=== PATIENT | female | born 1950 | race Caucasian/White ===

== ENCOUNTER 2018-09-28 09:02 | Day surgery (SDC) | payer MEDICARE ==
[2018-09-25 09:51] VITALS: BMI 42.9
--- NOTE | 2018-09-28 14:19 | OP ---
DATE OF PROCEDURE: 09/28/2018 PREOPERATIVE DIAGNOSES: 1. History of colon polyps. 2. Chronic diarrhea. DESCRIPTION OF PROCEDURE: After informed consent was obtained, the patient was placed in the left lateral decubitus position. Anesthesia was administered per the Anesthesia Department. Forward-viewing endoscope was inserted into the rectum after perianal inspection and rectal exam were normal and passed to the cecum with ease. The cecum, terminal ileum, ileocecal valve, and appendiceal orifice were normal. The prep was excellent. In the ascending colon, a 1 cm polyp was seen and removed with snare electrocautery, a smaller 4 mm polyp was seen and removed with snare electrocautery. Random biopsies were taken from the colon. The left colon displayed diverticulosis coli. Retroflexion of the rectum was normal except for some small internal hemorrhoids. ASSESSMENT: 1. Two ascending colon polyps - status post polypectomy. 2. Left-sided diverticulosis coli. 3. Small internal hemorrhoids. 4. Otherwise, normal ileocolonoscopy. RECOMMENDATIONS: Await histopathology. Job ID: [id number]
[2018-09-28] MEDS ORDERED: Lidocaine 1% PF 5 ML VIAL ONE (17:03)
[2018-09-28] MEDS ORDERED: PROPOFOL 200 MG/20 ML VIAL ONE (17:03)
== END 2018-09-28 12:30 | disposition home or self-care (01) ==
LOC: SDC 09:02
PROVIDERS: ATTEND Internal Medicine Gastroenterology
PROC: 0DBK8ZZ Excision of Ascending Colon, Via Natural or Artificial Opening Endoscopic (ICD-10-PCS; principal; 2018-09-28)
PROC: 0DBE8ZZ Excision of Large Intestine, Via Natural or Artificial Opening Endoscopic (ICD-10-PCS; 2018-09-28)
DX: Z12.11 Encounter for screening for malignant neoplasm of colon (principal); D12.2 Benign neoplasm of ascending colon; K57.30 Diverticulosis of large intestine without perforation or abscess without bleeding; K52.9 Noninfective gastroenteritis and colitis, unspecified; K64.8 Other hemorrhoids; Z85.42 Personal history of malignant neoplasm of other parts of uterus; Z86.010 Personal history of colon polyps; Z79.899 Other long term (current) drug therapy
CPT/HCPCS: 88305; J2001; J2704

== ENCOUNTER 2019-02-11 08:11 | Inpatient (IN) | payer MEDICARE ==
[2019-02-11 08:43] LABS: #Basophils 0.1 thou/uL (0.0-0.2); #Eosinphils 0.1 thou/uL (0.0-0.7); #Lymphocytes 2.2 thou/uL (1.20-3.40); #Monocytes 0.8 thou/uL (0.11-0.59); %Basophils 0.4 % (0.0-1.0); %Eosinophils 0.8 % (0.0-10.0); %Lymphocytes 12.5 % (21.0-51.0); %Monocytes 4.6 % (0.0-10.0); %Neutrophils 81.6 % (42.0-75.0); Hemoglobin 13.7 g/dL (12.0-16.0); Mean Corpuscular HGB CONC 33.8 g/dL (32.0-36.0); Mean Corpuscular Hemoglobin 30.5 pg (27.0-31.0); Mean Corpuscular Volume 90.2 fL (78.0-98.0); Platelet Count 335 thou/uL (130-400); RBC Distribution Width 12.2 % (11.5-14.5); Red Blood Cell (RBC) Count 4.49 mill/uL (4.20-5.40); White Blood Cell (WBC) Count 17.1 thou/uL (4.8-10.8)
--- NOTE | 2019-02-11 08:43 | CT ---
EXAM: CT brain without contrast HISTORY: Altered mental status COMPARISON: None TECHNIQUE: Multiple contiguous axial images were obtained and a CT of the brain without contrast. FINDINGS: There are scattered hypodensities in the subcortical and periventricular white matter consi stent with small vessel ischemic disease. There is no evidence of hydrocephalus, intracranial hemorrhage, or extra-axial fluid collection. The calvarium and overlying soft tissues are unremarkable. The visualized paranasal sinuses and masto id air cells are well aerated. IMPRESSION: No evidence of acute intracranial abnormality Dr. Smith notified of findings at 8:39 AM on 02/11/2019
[2019-02-11 09:02] LABS: Base Excess-Venous 3.5 mmol/L (-2.0 to 3.0); Bicarbonate (HCO3v) 28.8 mmol/L (22.0-28.0); CO2 Tension (PvCO2) 44.7 mmHg (40.0-50.0); Calcium, Ionized 0.96 mmol/L (See Comments:); Chloride 99 mmol/L (98-107); Hemoglobin - Calc 14.7 g/dL (12.0-16.0); Potassium 3.4 mmol/L (3.5-5.1); Sodium 135 mmol/L (138-145); T. Carbon Dioxide 30.1 mmol/L (22.0-28.0); vO2 Saturation-calc 54.4 % (60.0-85.0)
[2019-02-11 09:06] LABS: ALT (SGPT) 11 U/L (8-55); AST (SGOT) 18 U/L (5-34); Albumin 4.3 g/dL (3.4-4.8); Alkaline Phosphatase 101 U/L (40-150); Anion Gap 19 mmol/L (10-20); BUN (Urea Nitrogen) 15 mg/dL (9.8-20.1); Bilirubin, Total 0.6 mg/dL (0.2-1.2); CK (CPK) 380 U/L (29-168); Calc. Creatinine Clearance 0 mL/min (70-130); Calcium 9.4 mg/dL (7.8-10.44); Carbon Dioxide 24 mmol/L (23-31); Chloride 97 mmol/L (98-107); Estimated GFR-MDRD 49; Globulin 2.8 g/dL (2.4-3.5); Glucose 225 mg/dL (80-115); Potassium 3.5 mmol/L (3.5-5.1); Protein, Total 7.1 g/dL (6.0-8.3); Sodium 136 mmol/L (136-145)
--- NOTE | 2019-02-11 09:53 | CT ---
CT ANGIOGRAM OF BRAIN WITH AND WITHOUT CONTRAST CT ANGIOGRAM OF NECK WITH CONTRAST CT PERFUSION OF BRAIN WITH CONTRAST: DATE: 02/11/2019 HISTORY: 68-year-old female with acute stroke. Dr. Landers discussed the findings by telephone with ER physician Dr. Jamie Smith at 9:33 AM on 02/11/2019 COMPARISON: No prior brain CTs, MRIs, or CTAs. TECHNIQUE: Noncontrast brain CT performed. Iodinated IV contrast injected. Bolus chasing technique scan from aortic arch performed through vertex of the head. Coronal and sagittal 3-D MIP reconstructions. Postcontrast injection multiple axial scans perfusion study, excluding upper and lower portions of br ain. Unfortunately, the patient moved before the perfusion scan, and the level superior to the level of th e mid bodies of the lateral ventricles were excluded from the scan. FINDINGS: There is a filling defect throughout the entire the M1 segment of the left middle cerebral artery, pr obably acute. There is contrast opacification of at least some of the proximal and distal branches of the left MCA. There is a large region of decreased blood volume with matching deficits on the cere bral blood flow and mean transit time, consistent with large infarction in the left MCA territory. No definite noninfarcted penumbra of potentially salvageable ischemic brain parenchyma is visualized around the infarction. It is possible that there could be such a penumbra superior to the upper most images (patient moved and the upper portion of the cerebrum was not included). However, the visi ble region of infarction involves at least 25-30% of the visualized left MCA territory. There is heavily calcified large atheromatous plaque at the bilateral proximal internal carotid arter ies causing severe, approximately 75-80% stenosis at the origin of the right internal carotid, and very severe, approximately 90-99% stenosis at the origin of left internal carotid. Distal to this heather nosis, the rest of the left internal carotid artery is diffusely small in caliber. There is prominent calcified plaque in the bilateral carotid siphons. Medialized, retropharyngeal courses of the bilateral common carotid arteries.. IMPRESSION: 1) large acute infarction in left middle cerebral artery territory. 2) large thrombus filling the entire M1 segment of the left middle cerebral artery 3) atheromatous plaque causing critical stenosis at origin of left internal carotid artery. 4) atheromatous plaque causing severe stenosis at origin of right internal carotid artery.
[2019-02-11] MEDS ORDERED: Labetalol HCl 100 MG/20 ML VIAL ONE (10:32)
[2019-02-11] MEDS ORDERED: ISOVUE-370 76%-LOCM 1 ML ONE (10:48)
[2019-02-11 10:49] LABS: Bilirubin Negative (Negative); Blood, Urine Trace (Negative); Glucose, Urine (Dipstick) Negative (Negative); Leukocyte Negative (Negative); Nitrite Negative (Negative); Protein, Urine (Dipstick) Negative (Neg-Trace); Urobilinogen 0.2 mg/dL (0.2-1.0)
[2019-02-11] MEDS ORDERED: Aspirin Chewable 81 MG TAB ONE (10:49)
[2019-02-11 10:50] LABS: Clarity Clear (Clear)
[2019-02-11 11:01] LABS: Bacteria/HPF None Seen HPF (None Seen); Hyaline Casts/LPF NONE SEEN LPF (0-3 Hyaline); RBC/HPF 0-3 HPF (0-3); Squamous Epithelial 0-3 HPF (0-3)
[2019-02-11] MEDS ORDERED: cloNIDine 0.1 MG TAB PO PRN (15:01)
[2019-02-11] MEDS ORDERED: HumaLOG 300 UNITS/3 ML VIAL SC PRN (15:01)
[2019-02-11] MEDS ORDERED: Dextrose 5% in Water 1,000 ML IV PRN (15:48)
[2019-02-11] MEDS ORDERED: Dextrose 50% Abboject 50 ML SYRINGE IVP PRN (15:48)
--- NOTE | 2019-02-11 16:49 | HP ---
CHIEF COMPLAINT: Mental status change, status post fall. 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 The patient was recently seen in my office for followup wellness exam. She had been improving after 2 years of cancer treatment with Dr. Barajas at [facility]. Her blood pressure had been relatively well controlled. Her anxiety had been well controlled. Her diabetes was not well controlled. Her medications were adjusted and she went home in good condition following her followup visit as an outpatient. Per history from the neighbor yesterday, she was not responding to phone calls. He went to visit her and she was apparently on the ground. The patient states that she was on her bed. The neighbor stayed over the house to keep an eye on her and she continued to have difficulty moving, had difficulty with word finding issues. They called 911 and they brought her to the emergency department for further evaluation. In the Emergency Department, she was seen, evaluated, and found to have altered mental state with difficulty with memory, difficulty with speaking, some difficulty with ambulating. Her CT of the brain was normal, but she had a CT angiogram, which revealed an acute infarction of the left middle cerebral artery as well as large thrombus of the left middle cerebral artery and plaque in the right and left internal carotid artery. Neurology was consulted in the emergency department. Neurosurgery was consulted. Dr. España was informed of the case. He reviewed her and felt like there was no surgical intervention necessary at this time, but to be admitted for medical management. Upon evaluation and history taking, the patient does have word- finding difficulties. She has a hard time recalling what happened and her dysarthria keeps her from passing on the history. She does have some right-sided weakness and right-sided visual neglect as well. PAST MEDICAL HISTORY: Includes; 1. Low-grade serous carcinoma, status post surgical resection at [facility], status post chemotherapy. 2. Type 2 diabetes. 3. Hypertension. 4. Hyperlipidemia. 5. Gastroesophageal reflux disease. 6. Hypothyroidism. 7. Anxiety and depression. 8. Chronic diarrhea. PAST SURGICAL HISTORY: Includes EGD in 2012, colonoscopy in 2012, omental resection and ovarian resection in 2017, and skin cancer removal. MEDICATIONS: Include; 1. Venlafaxine 150 mg daily. 2. Trazodone 100 mg at bedtime. 3. Synthroid 50 mcg daily. 4. Diovan 320 mg daily. 5. Cholestyramine 4 g p.r.n. 6. Lipitor 20 mg daily. 7. Xanax XR 0.4 mg p.r.n. 8. Onglyza 5 mg daily. 9. Lomotil p.r.n. 10. Allopurinol 100 mg daily. 11. Omeprazole 40 mg daily. ALLERGIES: NONE KNOWN. IMMUNIZATIONS: Last Prevnar on February 03, 2019. Pneumovax on June 07, 2013. Tdap on February 02, 2018. Flu shot is up today. FAMILY HISTORY: Father unknown. Mother, with thyroid disease, thyroid cancer. Siblings with hypertension. SOCIAL HISTORY: She lives alone with neighbors nearby. No smoking. No alcohol. No drug use. She states that she has no family nearby. REVIEW OF SYSTEMS: As per the history of present illness. GENERAL: No recent illness or fevers. HEENT: Denies headache. CARDIAC: Denies chest pain or shortness of breath. PULMONARY: Denies cough. GASTROINTESTINAL: Denies nausea or vomiting. GENITOURINARY: No recent history of urinary tract infection. NEUROLOGIC: As per the history of present illness. PHYSICAL EXAMINATION: VITAL SIGNS: Temperature 98.9, pulse of 93, respirations 23, and blood pressure 157/129 on admission to the emergency department. GENERAL: She is awake and alert. No acute distress. She appears comfortable on the stretcher. HEENT: She does have dysarthria with word-finding difficulties. She has right-sided visual neglect. Pupils are equal. Mucosa is moist. NECK: Supple. No bruits. HEART: Regular rate and rhythm. LUNGS: Clear. ABDOMEN: Morbidly obese. Nontender, nondistended. No hepatosplenomegaly. EXTREMITIES: Trace edema. She does have slight weakness in upper and lower extremities on the right side with decreased cma or lpn strength. LABORATORY DATA: White blood cell count elevated at 17.1, hemoglobin and hematocrit 13.7 and 40.5, and platelets of 335. ABG stable. Sodium 136, potassium 3.5, chloride 97, CO2 of 24, BUN and creatinine are 15 and 1.11 with a GFR of 49, serum glucose of 225, and calcium 9.4. AST and ALT are normal, alkaline phosphatase 101. CPK of 380, troponin I less than 0.01. IMAGING DATA: Again, CT of the brain showed no acute disease. CT angiogram of the head and neck revealed a large acute infarction of the left middle cerebral artery, large thrombus in the left middle cerebral artery. Plaque causing critical stenosis on the left internal carotid artery and severe stenosis in the right internal carotid artery. ASSESSMENT: This is a 68-year-old female patient with a history of omental carcinoma, type 2 diabetes, hypertension, hyperlipidemia, now with acute left middle cerebral artery infarction. PLAN: 1. Admit to Neuro Team. Consult Neurology for evaluation. We will initiate PT , OT, and speech therapy. Will start aspirin therapy and await neuro eval to see if she is a candidate for more advanced anticoagulation. There is no sign of hemorrhage. 2. Type 2 diabetes. We will convert her to basal insulin and insulin sliding scale and monitor closely. 3. Hypertension. I will continue her ARB. We will start hydralazine as well and clonidine p.r.n. 4. History of low-grade serous carcinoma. Follow up with Dr. Barajas as an outpatient. 5. Hyperlipidemia. We will continue statin therapy. 6. Anxiety and depression. We will continue her Effexor. 7. Disposition. We will plan for inpatient rehab and attempt to contact family as well. Job ID: [id number] [facility]
[2019-02-11 16:55] VITALS: BMI 44.5
[2019-02-11] MEDS: Allopurinol 300 MG TAB PO SCH (21:14)
[2019-02-11] MEDS: hydrALAZINE 25 MG TAB PO SCH (21:14)
[2019-02-11] MEDS: Venlafaxine HCl XR 150 MG CAP PO SCH (21:14)
[2019-02-11] MEDS: Letrozole 2.5 MG TAB PO SCH (21:14)
[2019-02-11] MEDS: Atorvastatin Calcium 20 MG TAB PO SCH (21:15)
[2019-02-12 05:08] LABS: #Basophils 0.1 thou/uL (0.0-0.2); #Eosinphils 0.2 thou/uL (0.0-0.7); #Lymphocytes 2.9 thou/uL (1.20-3.40); #Monocytes 0.8 thou/uL (0.11-0.59); #Neutrophils 8.9 thou/uL (1.40-6.50); %Basophils 0.5 % (0.0-1.0); %Eosinophils 1.7 % (0.0-10.0); %Lymphocytes 22.4 % (21.0-51.0); %Monocytes 6.1 % (0.0-10.0); %Neutrophils 69.3 % (42.0-75.0); Hemoglobin 12.3 g/dL (12.0-16.0); Mean Corpuscular HGB CONC 33.9 g/dL (32.0-36.0); Mean Corpuscular Hemoglobin 30.4 pg (27.0-31.0); Mean Corpuscular Volume 89.7 fL (78.0-98.0); Mean Platelet Volume 7.7 fL (7.4-10.4); Platelet Count 289 thou/uL (130-400); RBC Distribution Width 12.2 % (11.5-14.5); Red Blood Cell (RBC) Count 4.05 mill/uL (4.20-5.40); White Blood Cell (WBC) Count 12.8 thou/uL (4.8-10.8)
[2019-02-12 05:31] LABS: ALT (SGPT) 10 U/L (8-55); AST (SGOT) 21 U/L (5-34); Albumin 3.7 g/dL (3.4-4.8); Alkaline Phosphatase 82 U/L (40-150); Anion Gap 14 mmol/L (10-20); BUN (Urea Nitrogen) 15 mg/dL (9.8-20.1); Bilirubin, Total 0.6 mg/dL (0.2-1.2); Calc. Creatinine Clearance 104 mL/min (70-130); Calcium 8.8 mg/dL (7.8-10.44); Carbon Dioxide 25 mmol/L (23-31); Chloride 101 mmol/L (98-107); Estimated GFR-MDRD 58; Globulin 2.8 g/dL (2.4-3.5); Glucose 142 mg/dL (80-115); Potassium 3.1 mmol/L (3.5-5.1); Protein, Total 6.5 g/dL (6.0-8.3); Sodium 137 mmol/L (136-145)
--- NOTE | 2019-02-12 08:17 | PRG ---
DATE OF SERVICE: 02/12/2019 SUBJECTIVE: The patient states she is feeling some better. She denies chest pain or shortness of breath. Continues to have right-sided weakness. Has not been ambulating. Therapy has not been initiated yet. She is not able to tell of what happened yesterday. She continues to have word-finding difficulties, saying that it is just not coming. She states that her vision has improved from yesterday. OBJECTIVE: VITAL SIGNS: Temperature 97.7, pulse of 82, respirations 16, blood pressure 165/74, and pulse ox 93% to 97% on room air. GENERAL: She is awake and alert, in no acute distress, smiling. She appears comfortable. She does have word-finding difficulties. HEENT: Mucosa is moist. NECK: Supple. HEART: Regular rate and rhythm. LUNGS: Clear. ABDOMEN: Obese, soft, nontender, nondistended. EXTREMITIES: Right-sided with strength 3/5 in upper and lower extremities, 4/5 on left side. Sensation has decreased on the right. NEUROLOGIC: Visual neglect seems to have resolved subjectively. LABORATORY DATA: Sodium 137, potassium 3.1, chloride 101, CO2 of 25, BUN and creatinine 15 and 0.96 with a GFR of 58. Accu-Cheks of 157, 179, and 167. White blood cell count 12.8, hemoglobin and hematocrit 12.3 and 36.3, and platelets of 289. ASSESSMENT AND PLAN: 1. This is a 68-year-old female with a recent history of serous carcinoma of the omentum, status post resection and chemotherapy, now with acute large left middle cerebral artery infarction with thrombus. Neurosurgery has been notified, and she is not a surgical candidate. Neurology to follow as well. We will continue aspirin. PT, OT, and Speech Therapy. 2. Severe carotid stenosis. Will notify CV surgery for evaluation for possible intervention while she is in house. 3. Type 2 diabetes. I will continue insulin sliding scale. We will initiate basal insulin as well for better control. 4. Hypertension, on amlodipine, hydralazine, and p.r.n. clonidine. 5. History of anxiety and depression. We will continue Effexor. Job ID: [id number] [facility]
[2019-02-12] MEDS: Aspirin 325 MG TAB PO SCH (08:47)
[2019-02-12] MEDS: hydrALAZINE 25 MG TAB PO SCH ×2 (08:48→21:09)
[2019-02-12] MEDS: Amlodipine 5 MG TAB PO SCH (08:48)
[2019-02-12] MEDS ORDERED: TAMOXIFEN CITRATE PO SCH (09:00)
[2019-02-12] MEDS: Insulin Glargine 10 UNITS in Pre-Filled Syringe 1 EACH SC SCH (10:19)
--- NOTE | 2019-02-12 10:28 | CT ---
CT BRAIN NONCONTRAST: DATE: 02/12/19 TIME: 0932 hours HISTORY: 68-year-old female follow-up left MCA CVA. COMPARISON: 02/11/19 at 0932 hours. FINDINGS: Small, approximately 2 x 1 cm irregularly-shaped region of cytotoxic edema (acute infarction) in the left insula has become more pronounced, better visualized with lower attenuation and larger size, whe reas it was previously less conspicuous. There is a short, linear hypodensity consistent with lacunar infarction, in the left basal ganglia or posterior limb of left internal capsule. It is unchanged in appearance since yesterday. This may be late subacute or old. Diffuse, moderate chronic ischemic white matter changes of the cerebrum bilaterally. Ventricles are n ormal in size and configuration. No mass effect or midline shift. No acute intra-axial or extra-axial hemorrhage. Calvarium is intact. No extra-axial fluid collection. The area of acute infarction in the left insula is much smaller than what the perfusion study yesterd ay suggested, which was much larger and much more superiorly located, at a different location. Based on lack of development of any large infarction on the current CT that matches that perfusion abnormal ity, it is now evident that those findings yesterday were due to slow, delayed perfusion of the left MCA territory due to the chronic critical stenosis at the proximal left internal carotid artery, rath er than actual infarction. There is hyperdensity of the M1 segment of the left middle cerebral artery on the current study and y 's study, which may represent the thrombus noted on the CT angiogram yesterday. IMPRESSION: 1. Interval evolution of small acute infarction in the left insula, in the left middle cerebral anna ry territory. 2. Small lacunar infarction in the left basal ganglia of indeterminate age. 3. What was thought to be a large infarction in the left MCA territory on the CT perfusion study of yesterday was apparently artifactual due to slow flow (delay in injected contrast material reaching t he left MCA territory) due to the chronic critical stenosis of the proximal left internal carotid art yen, and associated diffusely small caliber of the entire left internal carotid artery). EITAN Allen POS: [facility]
[2019-02-12] MEDS: HumaLOG 300 UNITS/3 ML VIAL SC PRN ×2 (12:13→17:35)
--- NOTE | 2019-02-12 13:37 | CON ---
DATE OF CONSULTATION: HISTORY OF PRESENT ILLNESS: This is a 68-year-old female with multiple cardiovascular risk factors including diabetes mellitus, hypertension, dyslipidemia, and obesity. She was recently seen by Dr. Mcclelland in the office and doing relatively well, but was found down by a neighbor on the day of admission, 02/11. She was found to have a left middle cerebral artery CVA with expressive aphasia, weakness, and uncoordination of the right hand and arm, and some difficulty walking. She was not felt to be a candidate for thrombolytic therapy; however, a CTA, which I have reviewed, demonstrated a small left internal carotid artery compared to the right with bilateral severe stenosis in both the right and left internal carotid arteries. HOME MEDICATIONS: Did not include aspirin daily; however, she is currently on aspirin. She was taking; 1. Prilosec 40. 2. Allopurinol 100. 3. Onglyza 5. 4. Xanax 0.4 p.r.n. 5. Lipitor 20. 6. Cholestyramine 4 p.r.n. 7. Diovan 320 a day. 8. Synthroid 50 a day. 9. Trazodone 100 at bedtime. 10. Venlafaxine 50 mg daily. ALLERGIES: NONE KNOWN. SOCIAL HISTORY: She is a nonsmoker. She lives alone. PAST SURGICAL HISTORY: Includes omental resection and ovarian resection in 2017 for a low-grade malignancy. PHYSICAL EXAMINATION: GENERAL: On examination, she is an alert, cooperative lady. VITAL SIGNS: Blood pressure most recently recorded is 140/80, heart rate 85. NECK: No carotid bruits. LUNGS: Clear to auscultation. CARDIAC: Regular rate and rhythm. No murmurs. ABDOMEN: Obese and nontender. EXTREMITIES: She has palpable posterior tibial pulses bilaterally with no peripheral edema. She had good strength in plantar and dorsiflexion of her feet. 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 She has expressive aphasia, although is able to speak some words. Weight is recorded at 260 pounds, height 5 feet 4 inches, BMI of 44.5. ASSESSMENT AND PLAN: At this time. MRI is pending, but the patient is obviously still suffered a left middle cerebral artery stroke. If she continues to improve, surgical consideration for a left and right carotid endarterectomy can be undertaken. I will follow up with her in about 3 weeks in the office, and in the meantime, continue aspirin therapy. Job ID: [id number]
--- NOTE | 2019-02-12 14:18 | MRI ---
BRAIN MRI WITHOUT CONTRAST: DATE: 02/12/2019. COMPARISON: None. HISTORY: Evaluate acute infarction, slurred speech. TECHNIQUE: Multiplanar, multisequence MR imaging of the brain obtained without contrast. FINDINGS: There is restricted diffusion involving the anterior medial left temporal lobe and insula extending s uperiorly to involve the periventricular white matter adjacent to the posterior body of the lateral v entricle on the left. There are a few additional foci of restricted diffusion in the periventricular white matter adjacent to the anterior body of the left lateral ventricle. There is an additional fo cus of acute infarction within the left posterior frontoparietal region measuring 7 mm. No evidence for right-sided acute infarction. No brainstem or posterior fossa acute infarction. The areas of left-sided acute infarction demonstrate increased T2 and FLAIR signal consistent with cy totoxic edema. No associated intracranial hemorrhage is evident. There is no midline shift or mass effect. There are innumerable foci of increased T2 and FLAIR signal throughout the periventricular, deep, and subcortical white matter, evidence of severe small-vessel disease. No significant paranasal opacification. There are a few scattered opacified mastoid air cells bilate rally. The flow void of the internal carotid artery is markedly abnormal in the distal cervical portion and petrous portion as well as in the supraclinoid region which suggests very slow blood flow or left int ernal carotid artery occlusion. IMPRESSION: Evidence of multifocal acute infarction on the left. No associated hemorrhage. Abnormal left analytics intern al carotid artery flow void suggests internal carotid artery occlusion and/or markedly slow blood salome w on the basis of severe stenosis. POS: [facility]
[2019-02-12] MEDS: Allopurinol 300 MG TAB PO SCH (21:09)
[2019-02-12] MEDS: Venlafaxine HCl XR 150 MG CAP PO SCH (21:09)
[2019-02-12] MEDS: Letrozole 2.5 MG TAB PO SCH (21:09)
[2019-02-12] MEDS: Atorvastatin Calcium 20 MG TAB PO SCH (21:09)
--- NOTE | 2019-02-13 01:27 | CON ---
DATE OF TELEMEDICINE CONSULTATION LEEROY JIMMY: 02/12/2019 CHIEF COMPLAINT: Acute stroke. HISTORY OF PRESENT ILLNESS: The patient is a 68-year-old right-handed lady who is brought to the emergency room with speech difficulty. She has some aphasia, but is able to communicate. The patient has history of hypertension, hyperlipidemia, obesity, low-grade serous carcinoma of the peritoneum in the past, status post chemotherapy at [facility]. She was found down by her neighbor and brought to the ER. Her cancer has been well controlled. She has poor control of her diabetes. Per ER chart, her neighbor told the hospital staff that she was not responding to phone calls. He went to visit her and she was on the ground and neighbor stayed over the house to keep an eye on her and she was unable to move and had trouble speaking, it was when 911 was called and she was brought to the ER and she was evaluated and found to have altered mental status with difficulty with her memory, speaking and also ambulation. Her CT head was normal, but CT angiogram showed an acute infarct in the left MCA territory and a thrombus in the left MCA plaque and neurosurgery consulted and the patient is mainly admitted for medical management, then she did not qualify for any clot retrieval procedures or other interventional procedures. PREVIOUS MEDICAL HISTORY: Low-grade serous carcinoma with resection at [facility], status post chemotherapy, type 2 diabetes, hypertension, hyperlipidemia, gastroesophageal reflux disease, hypothyroidism, anxiety, depression and chronic diarrhea. PAST SURGICAL HISTORY: EGD in 2012, colonoscopy in 2012, omental resection and ovarian resection in 2017 and skin cancer removal. MEDICATIONS: At home include: 1. Venlafaxine. 2. Trazodone. 3. Synthroid. 4. Diovan. 5. Cholestyramine. 6. Lipitor. 7. Xanax. 8. Onglyza. 9. Lomotil. 10. Allopurinol. 11. Omeprazole. ALLERGIES: NO KNOWN DRUG ALLERGIES. FAMILY HISTORY: Father's medical history is unknown. Mother at 72 with thyroid cancer. The patient reported she does not have any kids or siblings. She lives alone. SOCIAL HISTORY: She lives alone and neighbor's help. She does not smoke. No alcohol. No drug use. REVIEW OF SYSTEMS: Difficult to obtain due to her aphasia. LABORATORY DATA: Laboratory workup, white count 12.8, hemoglobin 12.3, hematocrit 36.3, platelets 289. Chemistry; sodium 137, potassium 3.1, chloride 101, bicarb 25, BUN 15, creatinine 0.96, glucose 142. Urinalysis was negative. PHYSICAL EXAMINATION: VITAL SIGNS: Blood pressure was 165/74, temperature was 97.7, pulse 82. GENERAL APPEARANCE: Well-built, well-nourished, slightly obese lady, who is able to communicate mostly with yes and no and tries to talk, but is aphasic. CHEST: Clear vesicular breathing. CARDIOVASCULAR: S1, S2 heard. No murmurs. ABDOMEN: Soft. NEUROLOGICAL: Speech, aphasia. CRANIAL NERVES: Higher intellectual functions. She can communicate with yes and no and she tries to follow commands. Cranial nerve examination, she has right facial droop. Normal extraocular movements. Pupils are 2 mm bilaterally, reactive to light. Normal facial sensation bilaterally. Normal hearing. Tongue midline. No atrophy noted. Normal elevation of palate. Motor bulk normal, tone normal, strength 5/5 on the left side and 4/5 proximally on the right side and distally 5/5. Muscle groups tested are deltoid, biceps, triceps, wrist extension and flexion, finger extension and flexion, iliopsoas, hamstrings, quadriceps, ankle dorsiflexion, plantar flexion, deltoid, biceps, triceps, wrist extension and flexion bilaterally. Deep tendon reflexes were 1+. Sensory normal. Cerebellar normal [id number] , [id number] was difficult to perform. IMPRESSION: The patient is a 68-year-old lady with the left middle cerebral artery infarct. Her CT angiogram does show clot in the left middle cerebral artery territory with large acute infarct in the left middle cerebral artery territory and a thrombus in the entire left middle cerebral artery M1 segment and on the CT angiogram, she also had atherosclerotic block causing critical stenosis at the origin of left ICA and also stenosis of the right ICA. MRI of the brain was performed after I requested it today and her MRI shows multifocal acute infarct on the left side and this is likely due to ICA occlusion. DIAGNOSTIC DATA: The patient is a 68-year-old lady with a history of presenting to the ER when she was found down by the neighbor and she has history of obesity, hyperlipidemia, hypertension, and prior history of carcinoma, which is stable. She now has dense left MCA infarct and bilateral ICA stenosis. Vascular surgery has been consulted. RECOMMENDATIONS: Aspirin for stroke prophylaxis along with statin for now. We will follow up patient with you tomorrow. Please monitor neurological status. Call if any problems. Job ID: [id number] ROSIE
[2019-02-13] MEDS: Levothyroxine Sodium 112 MCG TAB PO SCH (05:27)
[2019-02-13 06:22] LABS: #Basophils 0.1 thou/uL (0.0-0.2); #Eosinphils 0.3 thou/uL (0.0-0.7); #Lymphocytes 2.5 thou/uL (1.20-3.40); #Monocytes 0.7 thou/uL (0.11-0.59); #Neutrophils 8.6 thou/uL (1.40-6.50); %Basophils 0.7 % (0.0-1.0); %Eosinophils 2.6 % (0.0-10.0); %Lymphocytes 20.5 % (21.0-51.0); %Monocytes 5.7 % (0.0-10.0); %Neutrophils 70.5 % (42.0-75.0); Hemoglobin 12.6 g/dL (12.0-16.0); Mean Corpuscular HGB CONC 34.3 g/dL (32.0-36.0); Mean Corpuscular Volume 90.3 fL (78.0-98.0); Mean Platelet Volume 8.1 fL (7.4-10.4); Platelet Count 303 thou/uL (130-400); RBC Distribution Width 12.3 % (11.5-14.5); Red Blood Cell (RBC) Count 4.07 mill/uL (4.20-5.40); White Blood Cell (WBC) Count 12.2 thou/uL (4.8-10.8)
[2019-02-13 06:44] LABS: Anion Gap 14 mmol/L (10-20); BUN (Urea Nitrogen) 19 mg/dL (9.8-20.1); Calc. Creatinine Clearance 117 mL/min (70-130); Calcium 8.8 mg/dL (7.8-10.44); Carbon Dioxide 26 mmol/L (23-31); Chloride 100 mmol/L (98-107); Cholesterol 106 mg/dl (< 200 Desired); Estimated GFR-MDRD 67; Glucose 131 mg/dL (80-115); HDL Cholesterol 52 mg/dL (>60 Neg Risk); LDL Cholesterol, Calculated 35 mg/dL; Potassium 3.2 mmol/L (3.5-5.1); Sodium 137 mmol/L (136-145); Triglycerides 95 mg/dL (Less than 150)
[2019-02-13] MEDS: Aspirin 325 MG TAB PO SCH (08:17)
[2019-02-13] MEDS: Amlodipine 5 MG TAB PO SCH (08:18)
[2019-02-13] MEDS: hydrALAZINE 25 MG TAB PO SCH ×3 (08:18→21:58)
[2019-02-13] MEDS ORDERED: Ondansetron ODT 4 MG TAB PO PRN (08:38)
[2019-02-13] MEDS: Insulin Glargine 10 UNITS in Pre-Filled Syringe 1 EACH SC SCH (10:29)
[2019-02-13] MEDS ORDERED: Potassium Chloride 20 MEQ TAB PO SCH (10:30)
[2019-02-13] MEDS: Acetaminophen 325 MG TAB PO PRN (10:31)
--- NOTE | 2019-02-13 10:46 | PRG ---
DATE OF SERVICE: 02/13/2019 SUBJECTIVE: The patient continues to have word-finding difficulties, expressive aphasia, and right-sided weakness. She has no difficulty swallowing. She is not ambulating due to her weakness. Denies chest pain or shortness of breath. She does complain of some headache to nursing and some nausea, which has improved. Her blood pressure has been elevated. Denies chest pain. OBJECTIVE: VITAL SIGNS: Temperature 98.1, pulse of 84, respirations 20. Blood pressure this morning was 132/72, elevated to 183/99 before her medications. GENERAL: She is awake and alert. No acute distress. Continues to be aphasic when she tries to talk. She is able to say some words. HEENT: Mucosa is moist. NECK: Supple. HEART: Regular rate and rhythm. LUNGS: Clear. ABDOMEN: Obese. NEUROLOGIC: Right-sided weakness in upper and lower extremities. LABORATORY DATA: Reviewed. Sodium 137, potassium 3.2, chloride 100, CO2 of 26, BUN and creatinine are 19 and 0.85, serum glucose of 131. Accu-Cheks of 157, 149, 142. Calcium of 8.8. Total cholesterol 106, triglycerides of 95, LDL of 35, HDL of 52. White blood cell count 12,200, hemoglobin and hematocrit are 12.6 and 36.7, and platelets of 303. Brain MRI from yesterday revealed a multifocal acute infarct on the left, no hemorrhage. Abnormal internal ICA with severe stenosis. Echocardiogram revealed ejection fraction of 55% to 60%. Mildly dilated left atrium. Annular calcification of the mitral valve, trace mitral regurg, trace tricuspid regurg. ASSESSMENT AND PLAN: 1. 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 Continue PT, OT, and Speech Therapy. We will continue aspirin as per Neurology. Appreciate their evaluation. 2. Hypertension. We will continue Norvasc. We will increase hydralazine to 50 mg t.i.d. and continue clonidine p.r.n. 3. Type 2 diabetes. We will continue insulin sliding scale. If her sugars continue to rise, we will increase Lantus as well. 4. Anxiety and depression. Continue venlafaxine. 5. History of omental carcinoma, on Femara. Job ID: [id number]
[2019-02-13] MEDS: HumaLOG 300 UNITS/3 ML VIAL SC PRN (11:21)
--- NOTE | 2019-02-13 19:03 | PRG ---
DATE OF TELEMEDICINE SERVICE WITH LEEROY LAWEY: 02/13/2019 CHIEF COMPLAINT: Acute stroke. INTERVAL HISTORY: The patient has remained stable overnight. No new events noted. She is still aphasic at this time and is able to communicate. She still continues to have right-sided weakness. LABORATORY WORKUP: White count 12.2, hemoglobin 12.6, hematocrit 36.7, platelets are 303. Sodium 137, potassium 3.2, chloride 100, bicarb 26, BUN 19, creatinine 0.85, glucose 131. Her echocardiogram was completed yesterday and EF is 55% to 60%. Mild dilatation of left atrium. Trace mitral regurgitation, mild tricuspid regurgitation. MRI results were noted yesterday and she has multifocal acute infarct on the left-hand side with cytotoxic edema and infarct is in the anterior medial left temporal lobe and insula. PHYSICAL EXAMINATION: VITAL SIGNS: Temperature 98.1, pulse is 90, respiratory rate 20, and blood pressure 110/57. NEUROLOGIC: Higher intellectual functions. The patient is awake, alert, and oriented. Cranial nerves, right facial droop. Motor examination, bulk normal. Tone normal. Strength 4/5 on the right side. IMPRESSION: The patient with acute left temporal lobe infarct. She remains stable, but she is aphasic. She still has weakness on the right side. No significant change since yesterday. RECOMMENDATION: Consider placement at either retirement or physical and rehab center. Continue present plan with antiplatelet agent and statin. I will see her as needed. Job ID: [id number] MTDD
[2019-02-13] MEDS: Letrozole 2.5 MG TAB PO SCH (21:58)
[2019-02-13] MEDS: Atorvastatin Calcium 20 MG TAB PO SCH (21:58)
[2019-02-13] MEDS: Venlafaxine HCl XR 150 MG CAP PO SCH (21:58)
[2019-02-13] MEDS: Allopurinol 300 MG TAB PO SCH (21:58)
--- NOTE | 2019-02-13 22:39 | CT ---
Exam: Brain CT without IV contrast: HISTORY: Worsening hemiparalysis COMPARISON: 02/12/2019 FINDINGS: Evidence for evolving left middle cerebral artery distribution infarct. No evidence for mass or midli ne shift. No intra or extra-axial hemorrhage. IMPRESSION: Evidence for evolving left middle cerebral artery distribution infarct. No new mass or bleed. Bilater al atrophy and chronic white matter ischemic change.
[2019-02-14] MEDS: Levothyroxine Sodium 112 MCG TAB PO SCH (04:16)
[2019-02-14 05:54] LABS: #Eosinphils 0.2 thou/uL (0.0-0.7); #Lymphocytes 0.9 thou/uL (1.20-3.40); #Monocytes 0.6 thou/uL (0.11-0.59); #Neutrophils 17.1 thou/uL (1.40-6.50); %Eosinophils 1.1 % (0.0-10.0); %Lymphocytes 4.7 % (21.0-51.0); %Neutrophils 91.3 % (42.0-75.0); Hemoglobin 14.1 g/dL (12.0-16.0); Mean Corpuscular HGB CONC 33.7 g/dL (32.0-36.0); Mean Corpuscular Hemoglobin 30.7 pg (27.0-31.0); Mean Platelet Volume 7.9 fL (7.4-10.4); Platelet Count 339 thou/uL (130-400); RBC Distribution Width 12.5 % (11.5-14.5); Red Blood Cell (RBC) Count 4.59 mill/uL (4.20-5.40); White Blood Cell (WBC) Count 18.7 thou/uL (4.8-10.8)
[2019-02-14 06:07] LABS: Anion Gap 15 mmol/L (10-20); BUN (Urea Nitrogen) 24 mg/dL (9.8-20.1); Calc. Creatinine Clearance 115 mL/min (70-130); Calcium 9.2 mg/dL (7.8-10.44); Carbon Dioxide 26 mmol/L (23-31); Chloride 99 mmol/L (98-107); Estimated GFR-MDRD 65; Glucose 170 mg/dL (80-115); Potassium 3.6 mmol/L (3.5-5.1); Sodium 136 mmol/L (136-145)
[2019-02-14] MEDS ORDERED: Amlodipine 5 MG TAB PO SCH (08:50)
[2019-02-14] MEDS: hydrALAZINE 25 MG TAB PO SCH ×3 (09:10→23:07)
[2019-02-14] MEDS: Losartan 25 MG TAB PO SCH (09:10)
[2019-02-14] MEDS: Aggrenox 200-25mg CAP PO SCH ×2 (09:10→23:07)
[2019-02-14] MEDS: Amlodipine 10 MG TAB PO SCH (09:10)
[2019-02-14] MEDS: Potassium Chloride 20 MEQ TAB PO SCH (09:11)
--- NOTE | 2019-02-14 10:00 | PRG ---
DATE OF SERVICE: 02/14/2019 SUBJECTIVE: The patient continues to have right-sided hemiparesis, appears more dense this morning, not able to move her hand. She is able to move her foot. Continues to have expressive dysphagia. Seems to be getting more frustrated. Denies chest pain. Denies problems with breathing. Swallow still remains intact. OBJECTIVE: VITAL SIGNS: Temperature 97.8, pulse of 87 to 90, respirations 20, blood pressure this morning was 182/90, pulse ox is 95% on room air. GENERAL: She is awake and alert. She smiles. No acute distress. Mucosa is moist. NECK: Supple. HEART: Regular rate and rhythm. LUNGS: Clear. ABDOMEN: Obese, soft, nontender, nondistended. EXTREMITIES: Trace lower extremity edema. NEUROLOGIC: She continues to have right dense hemiparesis, expressive aphasia, mild facial weakness. LABORATORY DATA: Repeat brain CT noncontrast yesterday revealed evolving left middle cerebral artery infarct. Sodium 136, potassium 3.6, chloride 99, CO2 of 26, BUN and creatinine 24 and 0.87 with a GFR of 65. Accu-Cheks of 176, 164, 149, 177. Calcium of 9.2. White blood cell count was elevated at 18.7, hemoglobin and hematocrit 14.1 and 41.7, and platelets of 339. ASSESSMENT AND PLAN: 1. This is a 68-year-old female patient with a large left middle cerebral artery infarct resulting in expressive aphasia, right hemiparesis. Repeat CT revealed evolving infarct. We will change aspirin to Aggrenox, Dr. Isabel for further recommendations. Awaiting inpatient rehab evaluation as well. 2. Hypertension, uncontrolled. We will increase her medicines, increase amlodipine to 10 mg, start losartan 50 mg daily. Continue hydralazine 50 mg t.i.d. and clonidine p.r.n. 3. Type 2 diabetes. We will increase Levemir for better control. 4. Episodes of supraventricular tachycardia asymptomatic. Await Cardiology consult. Job ID: [id number]
[2019-02-14] MEDS: Insulin Glargine 15 UNITS in Pre-Filled Syringe 1 EACH SC SCH (10:04)
[2019-02-14] MEDS ORDERED: Loperamide HCl 2 MG CAP PO PRN (11:15)
[2019-02-14] MEDS: HumaLOG 300 UNITS/3 ML VIAL SC PRN (11:55)
--- NOTE | 2019-02-14 14:28 | CON ---
DATE OF CONSULTATION: 02/14/2019 REASON FOR CONSULTATION: Nonsustained SVT. HISTORY OF PRESENT ILLNESS: Ms. Yates is a pleasant 68-year-old white female, who comes to the hospital for mental status changes. She was admitted and diagnosed with an MCA distribution stroke. This was confirmed by MRI. Carotid ultrasound showed severe bilateral carotid disease, most likely the culprit. She has been on telemetry monitoring. She has been mostly in sinus rhythm. She has had a couple of episodes of runs of nonsustained SVT about 11 beats worse asymptomatic. PAST MEDICAL HISTORY: 1. 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 2. Type 2 diabetes. 3. Hypertension. 4. Hyperlipidemia. 5. GERD. 6. Hypothyroidism. 7. Anxiety and depression. 8. Chronic diarrhea. PAST SURGICAL HISTORY: 1. EGD in 2012. 2. Omental resection and ovarian resection in 2017. 3. Skin cancer removal. OUTPATIENT MEDICATIONS: 1. Venlafaxine. 2. Trazodone. 3. Synthroid 50 mcg a day. 4. Diovan 320 mg a day. 5. Cholestyramine. 6. Lipitor 20 mg a day. 7. Xanax p.r.n. 8. Onglyza. 9. Lomotil. 10. Allopurinol. 11. Omeprazole 40 a day. ALLERGIES: NO KNOWN DRUG ALLERGIES. FAMILY HISTORY: Noncontributory. SOCIAL HISTORY: No alcohol, tobacco, or drugs. REVIEW OF SYSTEMS: A 12-point review of systems was done and was all negative unless stated in the history of present illness. PHYSICAL EXAMINATION: VITAL SIGNS: Temperature 97.4, pulse 87, respiratory rate 20, saturations 95% on room air, and blood pressure 165/77. GENERAL: Awake, alert, and oriented x3, in no distress. Slurred speech. Cannot move her right side. HEENT: Normocephalic and atraumatic. NECK: Supple. LUNGS: Clear. CARDIOVASCULAR: S1 and S2. No S3 or S4. No murmurs. ABDOMEN: Soft. Positive bowel sounds. EXTREMITIES: Trace edema. SKIN: Warm and dry. LABORATORY DATA: Laboratory work was reviewed. CBC, chemistries, and UAs were reviewed. MRI of the brain showed multifocal acute infarcts in the left with no associated hemorrhage with abnormal left internal carotid artery flow of blood, suggestive of internal carotid artery occlusion or markedly slow blood flow on the basis of severe stenosis. ASSESSMENT AND PLAN: 1. Nonsustained supraventricular tachycardia. 2. Normal LV function. 3. Acute middle cerebral artery distribution stroke. 4. Severe carotid disease. PLAN: 1. For her nonsustained SVT, I would only add low-dose beta lesli for now. We will start her on Coreg 3.125 b.i.d. and up titrate as tolerated. Otherwise, she has a normal LV function. This is not atrial fibrillation or atrial flutter. Most likely, the source of her stroke is her carotid disease. 2. We will continue to follow. Continue to monitor on telemetry monitoring. 3. We will probably need long-term rehab. Thank you for letting us to participate in the care of your patient. Job ID: [id number]
[2019-02-14] MEDS: Acetaminophen 325 MG TAB PO PRN (17:26)
[2019-02-14] MEDS: Carvedilol 3.125 MG TAB PO SCH (18:05)
[2019-02-14] MEDS: Allopurinol 300 MG TAB PO SCH (23:07)
[2019-02-14] MEDS: Letrozole 2.5 MG TAB PO SCH (23:07)
[2019-02-14] MEDS: Atorvastatin Calcium 20 MG TAB PO SCH (23:07)
[2019-02-14] MEDS: Venlafaxine HCl XR 150 MG CAP PO SCH (23:07)
[2019-02-15] MEDS: Levothyroxine Sodium 112 MCG TAB PO SCH (06:23)
[2019-02-15] MEDS ORDERED: Sulfameth/Trimethoprim DS 800-160mg TAB PO SCH (09:00)
--- NOTE | 2019-02-15 09:22 | PRG ---
DATE OF SERVICE: 02/15/2019 SUBJECTIVE: The patient continues to be aphasic with right-sided hemiparesis. She is not able to move her hand still. She seems frustrated at times due to inability to communicate well. She denies chest pain. Denies shortness of breath. No problems with her swallowing still. OBJECTIVE: VITAL SIGNS: Temperature 97.8, pulse of 89, respirations 18, blood pressure 139/71, and pulse ox is 96% on room air. GENERAL: She is awake and alert, in no acute distress. Aphasic. Mucosa is moist. HEART: Regular rate and rhythm. LUNGS: Clear. ABDOMEN: Obese. NEUROLOGIC: Right-sided hemiparesis. LABORATORY DATA: I reviewed labs. White blood cell count from yesterday elevated at 18.7, hemoglobin and hematocrit 14.1 and 41.7, and platelets of 339. Accu-Cheks 145, 146, 159, and 214. Urine culture from 02/11 revealed a low colony count of gram-negative rods. ASSESSMENT AND PLAN: 1. This is a 68-year-old female, who suffered a large left-sided middle cerebral artery infarction resulting in aphasia and right-sided hemiparesis. We will continue PT, OT, and Speech Therapy. She is stable for transfer to rehab when bed is available. 2. Carotid stenosis, bilateral. I appreciate Dr. Ocampo's evaluation. I will follow up as an outpatient. 3. Hypertension, better control with current medications. 4. Episodes of supraventricular tachycardia. Cardiology recommending beta-lesli and she is tolerating that well. 5. Cerebrovascular accident. We will continue Aggrenox and further plans per Neurology. 6. Elevated white blood cell count, possibly secondary to urinary tract infection. We will start Bactrim for 5 days. 7. Disposition, stable for transfer to rehab or intermediate when bed is available. Job ID: [id number]
[2019-02-15] MEDS: Potassium Chloride 20 MEQ TAB PO SCH (09:51)
[2019-02-15] MEDS: Amlodipine 10 MG TAB PO SCH (09:51)
[2019-02-15] MEDS: Losartan 25 MG TAB PO SCH (09:51)
[2019-02-15] MEDS: hydrALAZINE 25 MG TAB PO SCH ×2 (09:52→14:05)
[2019-02-15] MEDS: Carvedilol 3.125 MG TAB PO SCH (09:52)
[2019-02-15] MEDS: Insulin Glargine 15 UNITS in Pre-Filled Syringe 1 EACH SC SCH (09:53)
[2019-02-15] MEDS: Aggrenox 200-25mg CAP PO SCH (09:53)
--- NOTE | 2019-02-15 12:28 | PDOC.CTH ---
Cardiology Progress Note - Subjective The pt seen and examined. No overnight events. No cardiac complaints. - Objective Vital Signs Temp Pulse Pulse Pulse Resp BP BP 02/15/19 11:20 98.3 F 83 14 02/15/19 10:00 02/15/19 09:52 79 138/71 02/15/19 09:51 79 138/71 02/15/19 09:16 79 93 138/71 02/15/19 08:05 98.3 F 78 18 02/15/19 05:08 89 02/15/19 04:40 97.9 F 83 18 02/15/19 01:04 97.7 F 88 18 BP BP Pulse Ox 02/15/19 11:20 155/74 H 93 L 02/15/19 10:00 95 02/15/19 09:52 02/15/19 09:51 02/15/19 09:16 183/90 H 02/15/19 08:05 174/83 H 95 02/15/19 05:08 139/71 02/15/19 04:40 178/77 H 96 02/15/19 01:04 144/71 H 95 Weight 259 lb 02/14/19 02/15/19 02/16/19 06:59 06:59 06:59 Intake Total 780 710 Output Total 150 650 Balance 630 60 - Physical Examination Lungs: CTA Heart: RRR Abdomen: soft Extremities: other: (No edema) - Telemetry Telemetry Rhythm: SR - Labs Result Diagrams: 02/14/19 05:24 02/14/19 05:24 Troponin/CKMB Troponin I Less than 0.010 ng/mL (< 0.028) 02/11/19 08:32 - Assessment/Plan 1. S/p 11 beats NSVTs- stable with Coreg 3.125mg BID 2. MCA distribution stroke with aphasia and Rt side hemiparesis 3. HTN - stable 4. Hyperlpidiemia - on Statin 5. Hypothyroidism - 6. DM type 2 MAR reviewed * Echo on 02/12/2019 with EF 55-60%, mild dilated LA, trace MR, and mild TR Pt. seen and eval. by me. i agree with the A/P by the [employer]. No cardiac complaints. Chest clear. RRR. No edema. Review of Systems - Review of Systems Constitutional: reports: no symptoms reported EENTM: reports: no symptoms reported Respiratory: reports: no symptoms reported Cardiac (ROS): reports: no symptoms reported ABD/GI: reports: no symptoms reported : reports: no symptoms reported
[2019-02-15] MEDS: HumaLOG 300 UNITS/3 ML VIAL SC PRN (14:07)
[2019-02-15 16:09] VITALS: BP 142/71; TEMP 98.9
== END 2019-02-15 16:38 | DRG 65 ==
LOC: ERS 08:11 → ERHOLD 10:12 → 2SE 16:26
PROVIDERS: ADMIT Family Medicine; ATTEND Family Medicine
DX: I63.312 Cerebral infarction due to thrombosis of left middle cerebral artery (principal); G81.91 Hemiplegia, unspecified affecting right dominant side; Z68.41 Body mass index [BMI] 40.0-44.9, adult; I47.1 Supraventricular tachycardia; R29.707 NIHSS score 7; I65.23 Occlusion and stenosis of bilateral carotid arteries; R47.01 Aphasia; I10 Essential (primary) hypertension; E78.5 Hyperlipidemia, unspecified; E66.9 Obesity, unspecified; E11.9 Type 2 diabetes mellitus without complications; F41.9 Anxiety disorder, unspecified; K21.9 Gastro-esophageal reflux disease without esophagitis; E03.9 Hypothyroidism, unspecified; F32.9 Major depressive disorder, single episode, unspecified; Z85.028 Personal history of other malignant neoplasm of stomach; Z79.899 Other long term (current) drug therapy; Z79.84 Long term (current) use of oral hypoglycemic drugs
CPT/HCPCS: 0042T; 36415; 36416; 51701; 70450; 70496; 70498; 70551; 80048; 80053; 80061; 81003; 81015; 82330; 82550; 82803; 83735; 84484; 85025; 87086; 93005; 93306; 96361; 96374; J1815; Q0162; Q9966

== ENCOUNTER 2019-07-02 15:23 | Inpatient (IN) | payer MEDICARE ==
[2019-07-02 16:14] LABS: #Basophils 0.1 thou/uL (0.0-0.2); #Eosinphils 0.5 thou/uL (0.0-0.7); #Lymphocytes 2.2 thou/uL (1.20-3.40); #Monocytes 0.8 thou/uL (0.11-0.59); #Neutrophils 10.6 thou/uL (1.40-6.50); %Basophils 0.7 % (0.0-1.0); %Eosinophils 3.5 % (0.0-10.0); %Lymphocytes 15.4 % (21.0-51.0); %Monocytes 5.7 % (0.0-10.0); %Neutrophils 74.7 % (42.0-75.0); Hemoglobin 13.2 g/dL (12.0-16.0); Mean Corpuscular HGB CONC 33.6 g/dL (32.0-36.0); Mean Corpuscular Volume 92.2 fL (78.0-98.0); Mean Platelet Volume 8.8 fL (7.4-10.4); Platelet Count 332 thou/uL (130-400); Red Blood Cell (RBC) Count 4.27 mill/uL (4.20-5.40); White Blood Cell (WBC) Count 14.1 thou/uL (4.8-10.8)
[2019-07-02] MEDS ORDERED: cefTRIAXone\\ROCEPHIN 2 GM VIAL ONE (16:27)
--- NOTE | 2019-07-02 16:31 | RAD ---
XR Ankle Rt 3 View STANDARD: 07/02/2019 3:50 PM CLINICAL INDICATION: Wound COMPARISON: None. FINDINGS: There is no fracture. Mortise is intact. There is a mottled appearance with multifocal stippled lucen cies of the osseous structures of the imaged distal right leg and right ankle/hindfoot-midfoot.There is enthesophyte formation of the calcaneus. IMPRESSION: Generalized mottled density of the osseous structures of the distal right leg, ankle and hindfoot-mid foot. While this could relate to osseous demineralization, a marrow infiltrative process cannot be excluded. Recommend clinical correlation in this regard and imaging follow-up may also be obtained. Transcribed Date/Time: 07/02/2019 5:05 PM
[2019-07-02 16:33] LABS: ALT (SGPT) Less than 7 U/L (8-55); AST (SGOT) 10 U/L (5-34); Albumin 3.8 g/dL (3.4-4.8); Alkaline Phosphatase 86 U/L (40-110); Anion Gap 9 mmol/L (10-20); BUN (Urea Nitrogen) 16 mg/dL (9.8-20.1); Bilirubin, Total 0.4 mg/dL (0.2-1.2); Calc. Creatinine Clearance 0 mL/min (70-130); Calcium 9.8 mg/dL (7.8-10.44); Carbon Dioxide 32 mmol/L (23-31); Chloride 103 mmol/L (98-107); Estimated GFR-MDRD 67; Globulin 3.2 g/dL (2.4-3.5); Glucose 118 mg/dL (80-115); Sodium 140 mmol/L (136-145)
[2019-07-02] MEDS ORDERED: Vancomycin 1.5 GRAM/300 ML BAG 1.5 GM in Premix Bag 1 BAG IVPB SCH (16:45)
[2019-07-02] MEDS ORDERED: Bisacodyl 5 MG TAB PO PRN (17:54)
[2019-07-02] MEDS ORDERED: Senokot S 8.6-50 MG TAB PO PRN (17:54)
[2019-07-02] MEDS ORDERED: Dextrose 5% in Water 1,000 ML IV PRN (17:57)
[2019-07-02] MEDS ORDERED: HumaLOG 300 UNITS/3 ML VIAL SC PRN (17:57)
[2019-07-02] MEDS ORDERED: Dextrose 50% Abboject 50 ML SYRINGE SLOW IVP PRN (17:57)
[2019-07-02 21:49] VITALS: BMI 40.4
[2019-07-02] MEDS: Acetaminophen 325 MG TAB PO PRN (22:08)
[2019-07-02] MEDS: Apixaban 5 MG TAB PO SCH (22:08)
[2019-07-02] MEDS: Atorvastatin Calcium 20 MG TAB PO SCH (22:08)
--- NOTE | 2019-07-03 00:37 | HP ---
CHIEF COMPLAINT: Left ankle pain. HISTORY OF PRESENT ILLNESS: The patient is a very pleasant 68-year-old female with a history of CVA with right-sided paralysis, who presented to the hospital with complaints of pain in her right foot area. The patient is bed-bound and she does have paralysis on the right side. The patient has slurred speech and it is difficult to understand her, but she states that last week, she has started noticing some erythema on her right lateral aspect of her ankle and this worsened as the days went by. She also states that she had pain to her right foot. Denies any fevers or chills. [facility] a [facility] resident. The patient recently had a stroke in January. PAST MEDICAL AND SURGICAL HISTORY: 1. Atrial fibrillation. This was recently discovered in the last admission when she had the stroke. 2. She has had GERD. 3. 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 Also, EGD, colonoscopy, skin cancer removal, anxiety, depression, and history of chronic diarrhea. 4. She also has had a stroke significant to left MCA territory. She actually had a large thrombus filled the entire M1 segment of the left MCA. She also has atheromatous plaque into her left internal carotid artery and also severe stenosis of the right internal carotid artery. FAMILY HISTORY: She does not know much about her parents. She does not have any children. Mother had history of thyroid cancer and siblings have high blood pressure. SOCIAL HISTORY: She denies any alcohol use, or drug use. [facility]. She does not have a POA and I will get palliative care on services. Per notes, the patient has a power of immigration attorney, her friend Mr. Ros Turner, number is [phone]. CURRENT MEDICATIONS: She is on; 1. Allopurinol 100 mg daily. 2. Lipitor 20 mg daily. 3. Coreg 3.125 b.i.d. 4. Eliquis 5 mg twice a day. 5. Levemir 50 units subcu daily. 6. Levothyroxine 112 mcg daily. 7. Losartan 50 mg daily. 8. Protonix 20 mg daily. ALLERGIES: NO KNOWN DRUG ALLERGIES. REVIEW OF SYSTEMS: All negative except for the ones mentioned above in the HPI. PHYSICAL EXAMINATION: VITAL SIGNS: Are as of the following; temperature of 98.8, she was tachycardic at 105, blood pressure is 107/60. GENERAL: She is awake, alert, and oriented x3. Does not appear in any distress. HEENT: Normocephalic, atraumatic. She does have a slurred speech. CV: S1 and S2 present. No murmurs, rubs, or gallops. LUNGS: Clear to auscultation. No rhonchi or wheezes noted. ABDOMEN: Soft and nontender. Bowel sounds are present x2. EXTREMITIES: She has mild lower extremity edema. NEUROLOGIC: She does have no movement to her right side of her body and she also has slurred speech. SKIN: She does have significant discharge that is noted on her lateral aspect of her right ankle. Some purulent and some mild erythema that is noted. LABORATORY RESULTS: WBCs of 14.1, hemoglobin of 13.2, hematocrit of 39.3, platelets of 332. Chemistry; sodium of 140, potassium of 4.0, BUN of 16, creatinine 0.85, glucose of 118. She did have an x-ray of the right ankle, which indicated mottled density of the osseous structures in the distal right leg, ankle, hind foot, mid foot, possible osseous demineralization and marrow infiltrative process cannot be excluded. ASSESSMENT AND PLAN: The patient is a very pleasant 68-year-old female, who presents to the hospital with pain to her right ankle. 1. Right ankle cellulitis, possible with complication secondary to the patient's history of diabetes. Also, she normally is nonmobile and has a right-sided paralysis, which could definitely contribute to that. She has good pulses in that right foot. We will go ahead and do some arterial Dopplers on her lower extremity since she has had extensive plaque in her carotids and had a recent stroke to make sure the flow is well. I will start her on some ceftriaxone and vancomycin. She did have some cultures that were done in the ER. We will follow that and continue to monitor. 2. History of recent stroke. We will continue her Eliquis. 3. Diabetes. We will put her on Accu-Cheks before meals and at bedtime and continue her home medications. 4. Hyperlipidemia. We will continue her statin. Job ID: [id number]
[2019-07-03] MEDS: Vancomycin HCl 1 GM in Premix Bag 1 BAG IVPB SCH ×2 (05:51→16:53)
[2019-07-03 06:07] LABS: #Basophils 0.1 thou/uL (0.0-0.2); #Eosinphils 0.4 thou/uL (0.0-0.7); #Monocytes 0.6 thou/uL (0.11-0.59); %Basophils 0.7 % (0.0-1.0); %Eosinophils 3.5 % (0.0-10.0); %Monocytes 5.2 % (0.0-10.0); %Neutrophils 72.7 % (42.0-75.0); Mean Corpuscular HGB CONC 33.1 g/dL (32.0-36.0); Mean Corpuscular Hemoglobin 30.2 pg (27.0-31.0); Mean Corpuscular Volume 91.4 fL (78.0-98.0); Mean Platelet Volume 9.1 fL (7.4-10.4); Platelet Count 278 thou/uL (130-400); RBC Distribution Width 11.9 % (11.5-14.5); Red Blood Cell (RBC) Count 3.97 mill/uL (4.20-5.40)
[2019-07-03 06:28] LABS: Anion Gap 12 mmol/L (10-20); BUN (Urea Nitrogen) 13 mg/dL (9.8-20.1); Calc. Creatinine Clearance 112 mL/min (70-130); Calcium 8.9 mg/dL (7.8-10.44); Carbon Dioxide 26 mmol/L (23-31); Chloride 107 mmol/L (98-107); Estimated GFR-MDRD 70; Glucose 122 mg/dL (80-115); Potassium 3.7 mmol/L (3.5-5.1); Sodium 141 mmol/L (136-145)
[2019-07-03] MEDS: Dronedarone HCl 400 MG TAB PO SCH ×2 (08:06→16:53)
[2019-07-03] MEDS: Apixaban 5 MG TAB PO SCH ×2 (08:06→20:09)
[2019-07-03] MEDS: Allopurinol 100 MG TAB PO SCH (08:06)
[2019-07-03] MEDS ORDERED: Enoxaparin Sodium 40 MG/0.4 ML SYRINGE SC SCH (09:00)
[2019-07-03] MEDS ORDERED: Calcium Carbonate 500 MG ChewTAB PO PRN (09:17)
[2019-07-03] MEDS ORDERED: Simethicone Chewable 80 MG TAB PO PRN (09:17)
--- NOTE | 2019-07-03 09:25 | ULT ---
BILATERAL LOWER EXTREMITY ARTERIAL ULTRASOUND: HISTORY: Cellulitis. Pain. Diabetes. COMPARISON: None. TECHNIQUE: Rich scale, color flow, Doppler imaging, and spectral waveform analysis was performed of the left and right lower extremity arterial system. FINDINGS: RIGHT LOWER EXTREMITY: Monophasic flow throughout the entire right lower extremity arterial system. LEFT LOWER EXTREMITY: Triphasic flow in the common femoral artery, profunda femoral artery, proximal mid and distal superfi cial femoral artery, and popliteal artery. Biphasic flow in the anterior tibial artery, posterior tibial artery, and dorsalis pedis artery. VELOCITIES: RIGHT LOWER EXTREMITY: Common femoral artery 91.0 cm/s Profunda femoral artery 47.8 cm/s SFA proximal 66.7 cm/s SFA mid 65.9 cm/s SFA distal 62.0 cm/s Popliteal artery 47.8 cm/s Anterior tibial artery 47.8 cm/s Posterior tibial artery 47.1 cm/s Dorsalis pedis artery 13.4 cm/s LEFT LOWER EXTREMITY: Common femoral artery 83.6 cm/s Profunda femoral artery 58.2 cm/s SFA proximal 104.4 cm/s SFA mid 86.7 cm/s SFA distal 76.6 cm/s Popliteal artery 55.1 cm/s Anterior tibial artery 57.0 cm/s Posterior tibial artery 46.2 cm/s Dorsalis pedis artery 63.9 cm/s IMPRESSION: Significant atherosclerotic disease involving the right lower extremity arterial system. POS: INDER
[2019-07-03] MEDS: Metoprolol Tartrate 50 MG TAB PO SCH ×2 (10:36→20:09)
[2019-07-03] MEDS: Cholestyramine/Aspartame 4 gm Packet PO SCH ×2 (10:36→22:06)
[2019-07-03] MEDS: Acetaminophen 325 MG TAB PO PRN (11:49)
[2019-07-03] MEDS ORDERED: Labetalol HCl 100 MG/20 ML VIAL SLOW IVP PRN (13:21)
--- NOTE | 2019-07-03 13:35 | PDOC.HOSPP ---
- Subjective Encounter Date: 07/03/19 Encounter Time: 11:30 Subjective: pt up in bed feels better today - Objective Vital Signs & Weight: Vital Signs (12 hours) Temp Pulse Resp BP Pulse Ox 07/03/19 12:00 98.3 F 119 H 20 121/62 95 07/03/19 08:00 98.1 F 113 H 18 136/87 94 L 07/03/19 05:02 97.4 F L 104 H 17 145/80 H 94 L Weight Weight 235 lb 4.8 oz I&O: 07/02/19 07/03/19 07/04/19 06:59 06:59 06:59 Intake Total 500 240 Output Total 700 Balance -200 240 Result Diagrams: 07/03/19 05:46 07/03/19 05:46 Additional Labs: Accuchecks 07/03/19 07/03/19 11:57 04:15 POC Glucose 133 H 112 H Hospitalist ROS - Review of Systems Cardiovascular: denies: chest pain, palpitations, orthopnea, paroxysmal noc. dyspnea, edema, light headedness, other Gastrointestinal: denies: nausea, vomiting, abdominal pain, diarrhea, constipation, melena, hematochezia, other - Medication Medications: Active Medications Generic Name Dose Route Start Last Admin Trade Name Freq PRN Reason Stop Dose Admin Acetaminophen 650 mg 07/02/19 17:54 07/03/19 11:49 Tylenol PO 650 mg Q4H PRN Administration Headache/Fever/Mild Pain (1-3) Allopurinol 100 mg 07/03/19 09:00 07/03/19 08:06 Zyloprim PO 100 mg DAILY [place] Administration Apixaban 5 mg 07/02/19 21:00 07/03/19 08:06 Eliquis PO 5 mg BID [place] Administration Atorvastatin Calcium 20 mg 07/02/19 21:00 07/02/19 22:08 Lipitor PO 20 mg HS [place] Administration Cholestyramine Resin 4 gm 07/03/19 10:00 07/03/19 10:36 Questran Light PO 4 gm 1000,2200 [place] Administration Dronedarone 400 mg 07/03/19 08:00 07/03/19 08:06 Multaq PO 400 mg BID-WM [place] Administration Vancomycin HCl 1 gm/ Device 200 mls @ 200 mls/hr 07/03/19 06:00 07/03/19 05: 51 IVPB 200 mls 0600,1800 [place] Administration Metoprolol Tartrate 50 mg 07/03/19 09:00 07/03/19 10:36 Lopressor PO 50 mg BID [place] Administration Sodium Chloride 10 ml 07/02/19 21:00 07/03/19 08:09 Flush - Normal Saline IVF 10 ml Q12HR [place] Administration - Exam Heart: negative: RRR, no murmur, no gallops, no rubs, normal peripheral pulses, irregular, diminshed peripheral pulses, murmur present, II/IV, III/IV Respiratory: negative: CTAB, no wheezes, no rales, no ronchi, normal chest expansion, no tachypnea, normal percussion, rales, rhonchi, tachypneic, wheezes Gastrointestinal: negative: soft, non-tender, non-distended, normal bowel sounds , no palpable masses, no hepatomegaly, no splenomegaly, no bruit, no guarding, no rigidity, tender to palpation, distended, diminished bowl sounds, voluntary guarding Skin - other findings: erythema to right foot Hosp A/P (1) Cellulitis Code(s): L03.90 - CELLULITIS, UNSPECIFIED Status: Acute (2) Afib Code(s): I48.91 - UNSPECIFIED ATRIAL FIBRILLATION Status: Acute Qualifiers: Atrial fibrillation type: paroxysmal Qualified Code(s): I48.0 - Paroxysmal atrial fibrillation (3) CVA (cerebral vascular accident) Code(s): I63.9 - CEREBRAL INFARCTION, UNSPECIFIED Status: Acute (4) HTN (hypertension) Code(s): I10 - ESSENTIAL (PRIMARY) HYPERTENSION Status: Chronic Qualifiers: Hypertension type: essential hypertension Qualified Code(s): I10 - Essential (primary) hypertension - Plan will continue home meds, ekg done mild afib with rvr, will give labetalol. called micro no cx was sent from ER. I was told it was. will see if we can reculture her wound.
[2019-07-03] MEDS: Gabapentin 300 MG CAP PO SCH ×2 (13:41→20:10)
[2019-07-03] MEDS: cefTRIAXone\\ROCEPHIN 2 GM in Sodium Chloride 0.9% 100 ML IVPB SCH (15:57)
[2019-07-03] MEDS: Venlafaxine HCl XR 150 MG CAP PO SCH (20:08)
[2019-07-03] MEDS: Atorvastatin Calcium 20 MG TAB PO SCH (20:10)
[2019-07-03] MEDS: Insulin Glargine 15 UNITS in Pre-Filled Syringe 1 EACH SC SCH (20:10)
--- NOTE | 2019-07-03 20:24 | CON ---
DATE OF CONSULTATION: REASON FOR CONSULTATION: Foot inflammatory process. HISTORY OF PRESENT ILLNESS: A 68-year-old patient who has a history of low-grade serous carcinoma of the omentum in remission, who sustained a left MCA distribution CVA recently with residual dense right hemiplegia, which put her in a intermediate. Now, she is in the hospital because of development of an ulcerated area in the right lateral malleolus associated with tenderness and erythema surrounding the area. It is not clear the reason for the ulcer, but has to be some sort of pressure injury. The patient herself cannot give me any report because of expressive aphasia. She has been admitted and started on broad-spectrum coverage. Currently, Ms. Yates is awake. She is pleasant, and she understands my questions, but she has a hard time in communicating her thoughts because of expressive aphasia. She has a lot of difficulty in finding words and makes a lot of paraphasic errors. She is able to say yes and no and denies any headaches. No visual symptoms, sore throat, odynophagia, or dysphagia. No dyspnea. No abdominal pain. She is voiding without difficulty. She has some moderate pain in the right lateral malleolus area. 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 SOCIAL HISTORY: Lives in a intermediate. Never smoker. ALLERGIES: NONE. MEDICATIONS: 1. Metoprolol. 2. Gabapentin. 3. Multaq. 4. Cholestyramine. 5. Eliquis. 6. Letrozole. 7. Allopurinol. 8. Atorvastatin. 9. Pantoprazole. 10. Levothyroxine. 11. Venlafaxine. 12. She is currently on ceftriaxone and vancomycin. FAMILY HISTORY: Noncontributory. PHYSICAL EXAMINATION: VITAL SIGNS: Temperature is normal. Other vital signs are remarkable for tachycardia due to atrial fibrillation. Respiratory rate 20. O2 saturation 95. SKIN: Exam with the area of erosion, ulceration with yellow base. The ulcer measures about 0.8 cm. There is surrounding erythema and tenderness with a rim of about 2 cm. No other skin lesions noted. HEENT: Ocular movements conjugate. Oral cavity still with quite a few teeth in place. Moist mucosa. No lesions. NECK: Supple without jugular venous distention or carotid bruits. No lymphadenopathy. LUNGS: Symmetric. Clear breath sounds. HEART: S1 and S2. Irregular rate. Tachycardic. No murmurs. ABDOMEN: Soft. Not distended or tender. No ascites. No bladder distention. No joint inflammatory activity. No organomegaly. NEUROLOGIC: Right dense hemiparesis. Plantar responses are indifferent on the right side and flexor on the left. Pulses 1+ in dorsalis pedis, right and left side. Cap refill normal. Upper extremities, right is paralyzed, the left moves well, but is limited by the peripheral IV access in the antecubital fossa. She is awake, knows her name. Follows commands. Severe expressive dysphasia. LABORATORY DATA: White cell count 14,000 down to 11, platelets 332, hemoglobin 13, and neutrophil percent is 74. Sodium 140, creatinine 0.85. Liver profile normal. Urinalysis was not done this time. Microbiology with coagulase-negative Staphylococcus likely contaminant of the sample. There is a swab from the ulcer, which showed gram-positive cocci in pairs and clusters. IMAGING STUDIES: Ultrasound of lower extremities with triphasic flow in the left lower extremity and biphasic flow in the anterior tibial artery, posterior tibial artery, and dorsalis pedis. Right lower extremity with monophasic flow throughout the entire right lower extremity arterial system. Ankle x-ray with mild density with osseous structures of the distal right leg. ASSESSMENT: Recent cerebrovascular accident with a dense right hemiplegia, pressure ulceration of the right malleolus region with surrounding cellulitis, and peripheral vascular disease. DISCUSSION: The pulses are palpable. She has good capillary refill, so it should be enough to heal that area, and we would try to treat with antimicrobials for the time being without any further intervention, except staging the area with an MRI with contrast that does not show osteomyelitis and treat for a short period of time, hopefully with quick transition to oral regimen. Job ID: [id number]
[2019-07-03] MEDS ORDERED: Non-Formulary Item 1 EACH (Cholestyramine (With Sugar) [Cholestyramine Packet] 1 PACKET) PO SCH (21:00)
[2019-07-03] MEDS ORDERED: Non-Formulary Item 1 EACH (Venlafaxine Hcl [Venlafaxine Hcl Er] 150 MG) PO SCH (21:00)
[2019-07-04] MEDS: Vancomycin HCl 1 GM in Premix Bag 1 BAG IVPB SCH ×2 (06:31→16:35)
[2019-07-04] MEDS: Levothyroxine Sodium 112 MCG TAB PO SCH (06:32)
[2019-07-04] MEDS: Acetaminophen 325 MG TAB PO PRN (06:33)
[2019-07-04] MEDS: Allopurinol 100 MG TAB PO SCH (08:34)
[2019-07-04] MEDS: Dronedarone HCl 400 MG TAB PO SCH ×2 (08:34→16:35)
[2019-07-04] MEDS: Gabapentin 300 MG CAP PO SCH ×3 (08:34→20:33)
[2019-07-04] MEDS: Apixaban 5 MG TAB PO SCH ×2 (08:34→20:33)
[2019-07-04] MEDS: Cholestyramine/Aspartame 4 gm Packet PO SCH ×2 (08:34→21:14)
[2019-07-04] MEDS: Metoprolol Tartrate 50 MG TAB PO SCH ×2 (08:34→20:34)
[2019-07-04] MEDS ORDERED: LEVOTHYROXINE SODIUM 112 MCG PO SCH (09:00)
[2019-07-04] MEDS ORDERED: Non-Formulary Item 1 EACH (Insulin Detemir [Levemir] 15 UNIT) SQ SCH (09:00)
--- NOTE | 2019-07-04 11:01 | PDOC.HOSPP ---
- Subjective Encounter Date: 07/04/19 Encounter Time: 10:15 Subjective: pt up in bed has less pain to her right foot - Objective Vital Signs & Weight: Vital Signs (12 hours) Temp Pulse Resp BP BP Pulse Ox 07/04/19 08:00 96 07/04/19 07:15 97.7 F 89 18 122/87 96 07/04/19 04:59 98.2 F 95 18 126/73 92 L 07/04/19 00:00 97.6 F 95 18 133/76 95 Weight Weight 235 lb 4.8 oz I&O: 07/03/19 07/04/19 07/05/19 06:59 06:59 06:59 Intake Total 500 780 300 Output Total 700 Balance -200 780 300 Result Diagrams: 07/03/19 05:46 07/03/19 05:46 Additional Labs: Accuchecks 07/03/19 07/03/19 07/03/19 19:18 15:44 11:57 POC Glucose 205 H 137 H 133 H Hospitalist ROS - Review of Systems Cardiovascular: denies: chest pain, palpitations, orthopnea, paroxysmal noc. dyspnea, edema, light headedness, other Gastrointestinal: denies: nausea, vomiting, abdominal pain, diarrhea, constipation, melena, hematochezia, other Genitourinary: denies: dysuria, frequency, incontinence, hematuria, retention, other - Medication Medications: Active Medications Generic Name Dose Route Start Last Admin Trade Name Freq PRN Reason Stop Dose Admin Acetaminophen 650 mg 07/02/19 17:54 07/04/19 06:33 Tylenol PO 650 mg Q4H PRN Administration Headache/Fever/Mild Pain (1-3) Allopurinol 100 mg 07/03/19 09:00 07/04/19 08:34 Zyloprim PO 100 mg DAILY [place] Administration Apixaban 5 mg 07/02/19 21:00 07/04/19 08:34 Eliquis PO 5 mg BID [place] Administration Atorvastatin Calcium 20 mg 07/02/19 21:00 07/03/19 20:10 Lipitor PO 20 mg HS [place] Administration Cholestyramine Resin 4 gm 07/03/19 10:00 07/04/19 08:34 Questran Light PO 4 gm 1000,2200 [place] Administration Dronedarone 400 mg 07/03/19 08:00 07/04/19 08:34 Multaq PO 400 mg BID-WM [place] Administration Gabapentin 300 mg 07/03/19 15:00 07/04/19 08:34 Neurontin PO 300 mg TID [place] Administration Ceftriaxone Sodium 2 gm/ 100 mls @ 200 mls/hr 07/03/19 16:00 07/03/19 15:57 Sodium Chloride IVPB 100 mls Q24HR@1600 [place] Administration Vancomycin HCl 1 gm/ Device 200 mls @ 200 mls/hr 07/03/19 06:00 07/04/19 06: 31 IVPB 200 mls 0600,1800 [place] Administration Insulin Glargine 15 units/ 0.15 mls @ 0 mls/hr 07/03/19 21:00 07/03/19 20:10 Miscellaneous Medication SC 0.15 mls HS [place] Administration Labetalol HCl 5 mg 07/03/19 13:21 07/03/19 13:42 Normodyne SLOW IVP 5 mg Q4H PRN Administration SBP Greater Than 180 Levothyroxine Sodium 112 mcg 07/04/19 06:00 07/04/19 06:32 Synthroid PO 112 mcg 0600 [place] Administration Metoprolol Tartrate 50 mg 07/03/19 09:00 07/04/19 08:34 Lopressor PO 50 mg BID [place] Administration Sodium Chloride 10 ml 07/02/19 21:00 07/04/19 08:34 Flush - Normal Saline IVF 10 ml Q12HR [place] Administration Venlafaxine HCl 150 mg 07/03/19 21:00 07/03/19 20:08 Effexor Xr PO 150 mg HS [place] Administration - Exam Neck: negative: supple, symmetric, no JVD, no thyromegaly, no lymphadenopathy, no carotid bruit, JVD Heart: negative: RRR, no murmur, no gallops, no rubs, normal peripheral pulses, irregular, diminshed peripheral pulses, murmur present, II/IV, III/IV Respiratory: negative: CTAB, no wheezes, no rales, no ronchi, normal chest expansion, no tachypnea, normal percussion, rales, rhonchi, tachypneic, wheezes Hosp A/P (1) Cellulitis Code(s): L03.90 - CELLULITIS, UNSPECIFIED Status: Acute (2) Afib Code(s): I48.91 - UNSPECIFIED ATRIAL FIBRILLATION Status: Acute Qualifiers: Atrial fibrillation type: paroxysmal Qualified Code(s): I48.0 - Paroxysmal atrial fibrillation (3) CVA (cerebral vascular accident) Code(s): I63.9 - CEREBRAL INFARCTION, UNSPECIFIED Status: Acute (4) HTN (hypertension) Code(s): I10 - ESSENTIAL (PRIMARY) HYPERTENSION Status: Chronic Qualifiers: Hypertension type: essential hypertension Qualified Code(s): I10 - Essential (primary) hypertension - Plan will continue home meds, ekg done mild afib with rvr, will give labetalol. called micro no cx was sent from ER. I was told it was. will see if we can reculture her wound. 07/04 will continue abx, she does have severe disease per arterial doppler. appreciate ID's help.
[2019-07-04] MEDS: cefTRIAXone\\ROCEPHIN 2 GM in Sodium Chloride 0.9% 100 ML IVPB SCH (15:20)
[2019-07-04] MEDS: Atorvastatin Calcium 20 MG TAB PO SCH (20:33)
[2019-07-04] MEDS: Venlafaxine HCl XR 150 MG CAP PO SCH (20:34)
[2019-07-04] MEDS: Insulin Glargine 15 UNITS in Pre-Filled Syringe 1 EACH SC SCH (20:35)
[2019-07-05] MEDS: Levothyroxine Sodium 112 MCG TAB PO SCH (05:32)
[2019-07-05] MEDS: Vancomycin HCl 1 GM in Premix Bag 1 BAG IVPB SCH ×2 (05:33→17:35)
[2019-07-05] MEDS: Gabapentin 300 MG CAP PO SCH ×3 (07:57→20:07)
[2019-07-05] MEDS: Allopurinol 100 MG TAB PO SCH (07:57)
[2019-07-05] MEDS: Metoprolol Tartrate 50 MG TAB PO SCH ×2 (07:58→20:07)
[2019-07-05] MEDS: Dronedarone HCl 400 MG TAB PO SCH ×2 (07:58→16:24)
[2019-07-05] MEDS: Apixaban 5 MG TAB PO SCH ×2 (07:58→20:07)
[2019-07-05] MEDS: Cholestyramine/Aspartame 4 gm Packet PO SCH ×2 (09:00→21:49)
--- NOTE | 2019-07-05 10:59 | MRI ---
MRI RIGHT ANKLE WITH AND WITHOUT CONTRAST: Date: 07/04/19 HISTORY: Open wound. Evaluate for osteomyelitis. COMPARISON: Radiograph from a few days prior. FINDINGS: There is abnormal edema within the lateral cortex of the lateral malleolar tip, as well as of the med ullary cavity. Adjacent overlying wound. Subtle focus of loss of normal T1 marrow signal. There is a subtle avulsion of the adjacent cortex at the expected location of the superior peroneal retinaculum. There is a wound over the lateral malleolus with adjacent inflammatory enhancement. There is loss of demineralization with intracortical tunneling of the tibia and fibula. Muscles: There is edema and early atrophy of the abductor digiti minimi muscle suggesting a component of vascu lar neuropathy, compression of the inferior calcaneal nerve. Musculature is without significant edema . Ligaments: AITFL and PITFL are intact. ATFL is intact, as well as the CFL. Spring ligament appears to be intact. Tendons: The Achilles tendon is intact. The extensor tendons are intact. Moderate tenosynovitis of the posteri or tibial tendon. No subluxation of the peroneal tendons. IMPRESSION: 1. Osteitis and very early osteomyelitis of the lateral margin of the distal fibular tip at the late ral malleolus. There is an associated small osseous avulsion of the superior peroneal retinaculum due to insufficient cortex. 2. Extensive demineralization with intracortical tunneling, can be a component of hyperparathyroidis m. 3. Atrophy and edema of the abductor digiti minimi suggesting a component of Bee's neuropathy, a neural compression of the inferior calcaneal nerve. POS: OFF
--- NOTE | 2019-07-05 13:46 | PDOC.HOSPP ---
- Subjective Encounter Date: 07/05/19 Encounter Time: 07:40 Subjective: Pt seen for followup re:right ankle cellulitis. Feels better. - Objective Vital Signs & Weight: Vital Signs (12 hours) Temp Pulse Resp BP Pulse Ox 07/05/19 11:00 97.9 F 93 16 124/70 94 L 07/05/19 08:34 94 L 07/05/19 08:00 98.1 F 83 16 108/73 95 Weight Weight 235 lb 4.8 oz I&O: 07/04/19 07/05/19 07/06/19 06:59 06:59 06:59 Intake Total 780 1040 Output Total 650 Balance 780 390 Result Diagrams: 07/03/19 05:46 07/03/19 05:46 Additional Labs: Accuchecks 07/05/19 07/05/19 07/04/19 12:01 05:27 20:36 POC Glucose 122 H 126 H 139 H 07/04/19 07/04/19 16:02 04:27 POC Glucose 125 H 129 H Labs and MARs reviewed by vt Hospitalist ROS - Review of Systems Cardiovascular: denies: chest pain, palpitations, orthopnea, paroxysmal noc. dyspnea, edema, light headedness Gastrointestinal: denies: nausea, vomiting, abdominal pain, diarrhea, constipation, melena, hematochezia - Medication Medications: Active Medications Generic Name Dose Route Start Last Admin Trade Name Freq PRN Reason Stop Dose Admin Acetaminophen 650 mg 07/02/19 17:54 07/04/19 06:33 Tylenol PO 650 mg Q4H PRN Administration Headache/Fever/Mild Pain (1-3) Allopurinol 100 mg 07/03/19 09:00 07/05/19 07:57 Zyloprim PO 100 mg DAILY [place] Administration Apixaban 5 mg 07/02/19 21:00 07/05/19 07:58 Eliquis PO 5 mg BID [place] Administration Atorvastatin Calcium 20 mg 07/02/19 21:00 07/04/19 20:33 Lipitor PO 20 mg HS [place] Administration Cholestyramine Resin 4 gm 07/03/19 10:00 07/05/19 09:00 Questran Light PO 4 gm 1000,2200 [place] Administration Dronedarone 400 mg 07/03/19 08:00 07/05/19 07:58 Multaq PO 400 mg BID-WM [place] Administration Gabapentin 300 mg 07/03/19 15:00 07/05/19 07:57 Neurontin PO 300 mg TID [place] Administration Ceftriaxone Sodium 2 gm/ 100 mls @ 200 mls/hr 07/03/19 16:00 07/04/19 15:20 Sodium Chloride IVPB 100 mls Q24HR@1600 [place] Administration Vancomycin HCl 1 gm/ Device 200 mls @ 200 mls/hr 07/03/19 06:00 07/05/19 05: 33 IVPB 200 mls 0600,1800 [place] Administration Insulin Glargine 15 units/ 0.15 mls @ 0 mls/hr 07/03/19 21:00 07/04/19 20:35 Miscellaneous Medication SC Not Given HS [place] Labetalol HCl 5 mg 07/03/19 13:21 07/03/19 13:42 Normodyne SLOW IVP 5 mg Q4H PRN Administration SBP Greater Than 180 Levothyroxine Sodium 112 mcg 07/04/19 06:00 07/05/19 05:32 Synthroid PO 112 mcg 0600 [place] Administration Metoprolol Tartrate 50 mg 07/03/19 09:00 07/05/19 07:58 Lopressor PO 50 mg BID [place] Administration Sodium Chloride 10 ml 07/02/19 21:00 07/05/19 07:58 Flush - Normal Saline IVF 10 ml Q12HR [place] Administration Venlafaxine HCl 150 mg 07/03/19 21:00 07/04/19 20:34 Effexor Xr PO 150 mg HS [place] Administration - Exam General - other findings: Morbid obesity Eye: anicteric sclera ENT: moist mucosa Neck: supple Heart: RRR Respiratory: CTAB, no rales Gastrointestinal: soft Neurological - other findings: R hemiplegia Psychiatric: normal affect, normal behavior Hosp A/P (1) Cellulitis Code(s): L03.90 - CELLULITIS, UNSPECIFIED Status: Acute (2) Dyslipidemia Code(s): E78.5 - HYPERLIPIDEMIA, UNSPECIFIED Status: Chronic (3) HTN (hypertension) Code(s): I10 - ESSENTIAL (PRIMARY) HYPERTENSION Status: Chronic Qualifiers: Hypertension type: essential hypertension Qualified Code(s): I10 - Essential (primary) hypertension (4) Hemiparesis due to old cerebrovascular accident Code(s): I69.359 - HEMIPLGA FOLLOWING CEREBRAL INFARCTION AFFECTING UNSP SIDE Status: Chronic (5) Morbid obesity Code(s): E66.01 - MORBID (SEVERE) OBESITY DUE TO EXCESS CALORIES Status: Chronic (6) Afib Code(s): I48.91 - UNSPECIFIED ATRIAL FIBRILLATION Status: Chronic Qualifiers: Atrial fibrillation type: paroxysmal Qualified Code(s): I48.0 - Paroxysmal atrial fibrillation - Plan continue antibiotics, out of bed/ambulate Continue IV vancomycin for MRSA+ve wound. MRI: early osteomyelitis. HTN controlled. Continue statin. Continue apixaban.
[2019-07-05] MEDS: cefTRIAXone\\ROCEPHIN 2 GM in Sodium Chloride 0.9% 100 ML IVPB SCH (15:42)
[2019-07-05 18:03] LABS: Vancomycin, Trough 16.8 ug/mL
[2019-07-05] MEDS: Atorvastatin Calcium 20 MG TAB PO SCH (20:07)
[2019-07-05] MEDS: Venlafaxine HCl XR 150 MG CAP PO SCH (20:09)
[2019-07-05] MEDS: Insulin Glargine 15 UNITS in Pre-Filled Syringe 1 EACH SC SCH (20:13)
[2019-07-06] MEDS: Levothyroxine Sodium 112 MCG TAB PO SCH (05:30)
[2019-07-06] MEDS: Vancomycin HCl 1 GM in Premix Bag 1 BAG IVPB SCH ×2 (05:30→16:39)
[2019-07-06] MEDS: Metoprolol Tartrate 50 MG TAB PO SCH ×2 (08:21→21:16)
[2019-07-06] MEDS: Allopurinol 100 MG TAB PO SCH (08:21)
[2019-07-06] MEDS: Dronedarone HCl 400 MG TAB PO SCH ×2 (08:21→16:38)
[2019-07-06] MEDS: Apixaban 5 MG TAB PO SCH ×2 (08:21→21:23)
[2019-07-06] MEDS: Cholestyramine/Aspartame 4 gm Packet PO SCH ×2 (08:21→21:17)
[2019-07-06] MEDS: Gabapentin 300 MG CAP PO SCH ×3 (08:21→21:16)
--- NOTE | 2019-07-06 18:38 | PDOC.HOSPP ---
- Subjective Encounter Date: 07/06/19 Encounter Time: 18:38 Subjective: Pt seen for followup re: cellulitis and osteomyelitis. Denies fevers or chills. - Objective Vital Signs & Weight: Vital Signs (12 hours) Temp Pulse Resp BP Pulse Ox 07/06/19 07:20 97.9 F 82 16 127/78 92 L Weight Admit Weight 235 lb 4.8 oz Weight 235 lb 4.8 oz I&O: 07/05/19 07/06/19 07/07/19 06:59 06:59 06:59 Intake Total 1040 780 840 Output Total 650 700 Balance 390 80 840 Result Diagrams: 07/03/19 05:46 07/03/19 05:46 Additional Labs: Accuchecks 07/06/19 07/06/19 07/06/19 16:32 11:45 04:41 POC Glucose 133 H 130 H 120 H 07/05/19 19:12 POC Glucose 151 H Labs and MARs reviewed by nj Hospitalist ROS - Review of Systems Cardiovascular: denies: chest pain, palpitations, orthopnea, paroxysmal noc. dyspnea, edema, light headedness Gastrointestinal: denies: nausea, vomiting, abdominal pain, diarrhea, constipation, melena, hematochezia - Medication Medications: Active Medications Generic Name Dose Route Start Last Admin Trade Name Freq PRN Reason Stop Dose Admin Acetaminophen 650 mg 07/02/19 17:54 07/04/19 06:33 Tylenol PO 650 mg Q4H PRN Administration Headache/Fever/Mild Pain (1-3) Allopurinol 100 mg 07/03/19 09:00 07/06/19 08:21 Zyloprim PO 100 mg DAILY [place] Administration Apixaban 5 mg 07/02/19 21:00 07/06/19 08:21 Eliquis PO 5 mg BID [place] Administration Atorvastatin Calcium 20 mg 07/02/19 21:00 07/05/19 20:07 Lipitor PO 20 mg HS [place] Administration Cholestyramine Resin 4 gm 07/03/19 10:00 07/06/19 08:21 Questran Light PO 4 gm 1000,2200 [place] Administration Dronedarone 400 mg 07/03/19 08:00 07/06/19 16:38 Multaq PO 400 mg BID-WM [place] Administration Gabapentin 300 mg 07/03/19 15:00 07/06/19 16:05 Neurontin PO 300 mg TID [place] Administration Vancomycin HCl 1 gm/ Device 200 mls @ 200 mls/hr 07/03/19 06:00 07/06/19 16: 39 IVPB 200 mls 0600,1800 [place] Administration Insulin Glargine 15 units/ 0.15 mls @ 0 mls/hr 07/03/19 21:00 07/05/19 20:13 Miscellaneous Medication SC Not Given HS [place] Labetalol HCl 5 mg 07/03/19 13:21 07/03/19 13:42 Normodyne SLOW IVP 5 mg Q4H PRN Administration SBP Greater Than 180 Levothyroxine Sodium 112 mcg 07/04/19 06:00 07/06/19 05:30 Synthroid PO 112 mcg 0600 [place] Administration Metoprolol Tartrate 50 mg 07/03/19 09:00 07/06/19 08:21 Lopressor PO 50 mg BID [place] Administration Sodium Chloride 10 ml 07/02/19 21:00 07/06/19 08:21 Flush - Normal Saline IVF 10 ml Q12HR [place] Administration Venlafaxine HCl 150 mg 07/03/19 21:00 07/05/19 20:09 Effexor Xr PO 150 mg HS [place] Administration - Exam General - other findings: Morbid obesity Eye: anicteric sclera ENT: moist mucosa Neck: supple Heart: RRR Respiratory: CTAB, no rales Gastrointestinal: soft, non-tender Skin - other findings: R foot cellulitis Neurological: hemiplegia Psychiatric: normal affect, normal behavior Hosp A/P (1) Cellulitis Code(s): L03.90 - CELLULITIS, UNSPECIFIED Status: Acute (2) Osteomyelitis Code(s): M86.9 - OSTEOMYELITIS, UNSPECIFIED Status: Acute (3) Dyslipidemia Code(s): E78.5 - HYPERLIPIDEMIA, UNSPECIFIED Status: Chronic (4) HTN (hypertension) Code(s): I10 - ESSENTIAL (PRIMARY) HYPERTENSION Status: Chronic Qualifiers: Hypertension type: essential hypertension Qualified Code(s): I10 - Essential (primary) hypertension (5) Hemiparesis due to old cerebrovascular accident Code(s): I69.359 - HEMIPLGA FOLLOWING CEREBRAL INFARCTION AFFECTING UNSP SIDE Status: Chronic (6) Morbid obesity Code(s): E66.01 - MORBID (SEVERE) OBESITY DUE TO EXCESS CALORIES Status: Chronic (7) Afib Code(s): I48.91 - UNSPECIFIED ATRIAL FIBRILLATION Status: Chronic Qualifiers: Atrial fibrillation type: paroxysmal Qualified Code(s): I48.0 - Paroxysmal atrial fibrillation - Plan continue antibiotics, PT/OT MRSA cellulitis and early osteomyelitis, continue IV vancomycin. HTN controlled. Continue statin and apixaban.
[2019-07-06] MEDS: Venlafaxine HCl XR 150 MG CAP PO SCH (21:15)
[2019-07-06] MEDS: Atorvastatin Calcium 20 MG TAB PO SCH (21:16)
[2019-07-06] MEDS: Insulin Glargine 15 UNITS in Pre-Filled Syringe 1 EACH SC SCH (21:24)
--- NOTE | 2019-07-07 00:14 | CON ---
DATE OF CONSULTATION: REASON FOR CONSULT: Serous carcinoma. HISTORY OF PRESENT ILLNESS: Ms. Yates is a pleasant 68-year-old female, who is taking Femara for low-grade serous carcinoma diagnosed in 2017. She had a recent CVA with right-sided paralysis and was admitted on the for cellulitis of her right ankle. There was some question of osteomyelitis and she has been on antibiotics and wound care. We were asked to see the patient regarding her carcinoma. She was due for her 6-month followup with Dr. Barajas tomorrow. The patient was seen at bedside. She has fairly significant expressive aphasia and right-sided paralysis. She denies any complaints at this time. Further history was obtained from her power of criminal attorney, Ros Turner. PAST MEDICAL HISTORY: 1. Low-grade serous carcinoma of the omentum. 2. Recent left MCA stroke. 3. Atrial fibrillation. 4. Gastroesophageal reflux disease. 5. Irritable bowel syndrome. 6. Diabetes. 7. Hypertension, high cholesterol, anxiety, and depression. PAST SURGICAL HISTORY: 1. Hysterectomy. 2. Knee surgery. ALLERGIES: NO KNOWN DRUG ALLERGIES. HOME MEDICATIONS: 1. Letrozole 2.5 mg daily. 2. Magnesium oxide daily. 3. Metoprolol tartrate 50 mg. 4. Protonix 20 mg daily. 5. Potassium chloride 20 mEq daily. 6. Effexor 150 mg daily. 7. Insulin. 8. Allopurinol. 9. Eliquis 5 mg daily. 10. Lipitor daily. 11. Multaq 400 mg b.i.d. 12. Neurontin daily. 13. Levothyroxine 112 mcg daily. FAMILY HISTORY: Noncontributory. SOCIAL HISTORY: Single. Lives at [facility]. No alcohol, tobacco, or illicit drug use. REVIEW OF SYSTEMS: Negative except per noted in HPI. PHYSICAL EXAMINATION: VITAL SIGNS: Temperature is 97.9, pulse is 82, respiratory rate 16, BP is 127/78. She is 92% on room air. GENERAL: This is an obese female, in no acute distress. HEENT: Normocephalic, atraumatic. Pupils are equal and reactive to light. NECK: Supple. CV: Regular rate and rhythm. LUNGS: Clear anterior. ABDOMEN: Obese, nontender. Bowel sounds are positive. EXTREMITIES: No clubbing or cyanosis. SKIN: She has erythema on lateral aspect of her right foot and ankle. NEUROLOGICAL: She has expressive aphasia and right-sided paralysis. PERTINENT LABS AND X-RAYS: Current WBCs are 11, hemoglobin 12, hematocrit 36.2, and platelet count is 278,000, 72% neutrophils, 18% lymphocytes. Sodium is 141, potassium 3.7, chloride 107, CO2 is 26, BUN is 13, creatinine 0.81, calcium 8.5, bilirubin 0.4, AST is 10, ALT is less than 7, and alkaline phosphatase is 86. Serum total protein 7, albumin 3.8, globulin 3.2. ASSESSMENT: 1. Low-grade serous carcinoma, stable on letrozole. 2. Right lower extremity cellulitis. DISCUSSION: The patient should continue letrozole indefinitely. She takes 2.5 mg nightly. She is due for CA-125, which will add to the morning labs. No other recommendations at this time. She can follow up with us in 6 months in the outpatient setting. Job ID: [id number]
[2019-07-07] MEDS: Vancomycin HCl 1 GM in Premix Bag 1 BAG IVPB SCH ×2 (05:22→17:19)
[2019-07-07] MEDS: Levothyroxine Sodium 112 MCG TAB PO SCH (05:22)
[2019-07-07 06:04] LABS: #Basophils 0.1 thou/uL (0.0-0.2); #Eosinphils 0.4 thou/uL (0.0-0.7); #Lymphocytes 2.3 thou/uL (1.20-3.40); #Monocytes 0.6 thou/uL (0.11-0.59); #Neutrophils 7.5 thou/uL (1.40-6.50); %Basophils 0.5 % (0.0-1.0); %Lymphocytes 20.8 % (21.0-51.0); %Monocytes 5.7 % (0.0-10.0); Hemoglobin 11.4 g/dL (12.0-16.0); Mean Corpuscular HGB CONC 33.2 g/dL (32.0-36.0); Mean Corpuscular Hemoglobin 29.9 pg (27.0-31.0); Mean Corpuscular Volume 89.8 fL (78.0-98.0); Mean Platelet Volume 9.1 fL (7.4-10.4); Platelet Count 280 thou/uL (130-400); RBC Distribution Width 12.1 % (11.5-14.5); Red Blood Cell (RBC) Count 3.83 mill/uL (4.20-5.40); White Blood Cell (WBC) Count 10.9 thou/uL (4.8-10.8)
[2019-07-07] MEDS: Cholestyramine/Aspartame 4 gm Packet PO SCH ×2 (08:40→21:04)
[2019-07-07] MEDS: Allopurinol 100 MG TAB PO SCH (08:40)
[2019-07-07] MEDS: Metoprolol Tartrate 50 MG TAB PO SCH ×2 (08:41→21:03)
[2019-07-07] MEDS: Gabapentin 300 MG CAP PO SCH ×3 (08:41→21:03)
[2019-07-07] MEDS: Dronedarone HCl 400 MG TAB PO SCH ×2 (08:41→17:19)
[2019-07-07] MEDS: Apixaban 5 MG TAB PO SCH ×2 (08:41→21:03)
--- NOTE | 2019-07-07 15:54 | CON ---
DATE OF CONSULTATION: HISTORY OF PRESENT ILLNESS: Louisa Yates is a 68-year-old female, who suffered a stroke and has a right hemiparesis and lives in a fpc. She has developed osteomyelitis of her fibula head on the right; however, on the legs, she is hemiparetic. There is a small 1.5 cm eschar with some small skin decubitus, but no exposed bone on this side. They are offloading this with a pillow beneath her calves. Dr. Ren is involved. She is on intravenous antibiotics. The patient does not have a knee contracture. She is able to weakly move her right leg, but does not able to transfer and she does not feel it. She is morbidly obese, 5 feet 4 inches, 235 pounds, 40 BMI. She has comorbidities of high blood pressure, gout, and constipation. ALLERGIES: NONE. SOCIAL HISTORY: Tobacco, none. Alcohol, none. MEDICATIONS: In the fpc, include; 1. Gabapentin. 2. Venlafaxine. 3. Simethicone. 4. Protonix. 5. Zofran. 6. Metoprolol. 7. Magnesium oxide. 8. Magnesium hydroxide. 9. Loperidine. 10. Levothyroxine. 11. Femara. 12. Insulin. 13. Cholestyramine. 14. Calcium carbonate. 15. Atorvastatin. 16. Allopurinol. 17. Eliquis. 18. Tylenol. PAST SURGICAL HISTORY: The patient has had a colonoscopy by Dr. Rich in September of this year, past EGD and colonoscopies. Dr. Rueda has placed a MediPort in 10/2016. Dr. Rueda has performed omentectomy in with findings of serous carcinoma in the omentum, omentectomy performed and has had a prior hysterectomy. PAST MEDICAL HISTORY: 1. Morbid obesity. 2. Metabolic syndrome. 3. Diabetes. 4. Right hemiparesis from a stroke. 5. Gout. 6. Hypertension. PHYSICAL EXAMINATION: VITAL SIGNS: Height 5 feet 4 inches, weight 235 pounds, 40 BMI, temperature 98 degrees, heart rate 82, and blood pressure 119/80. LUNGS: Clear to auscultation. CARDIAC: Regular rate and rhythm without murmur or gallop. ABDOMEN: Obese, soft, nontender. EXTREMITIES: Right hemiparesis. Right lateral malleolar area, there is a small area of skin breakdown, probably eschar, probably 0.5 cm, but the rounding is a little macerated, but no overt severe cellulitis. LABORATORY DATA: White count 10 and hemoglobin 11.4. Renal function normal. ASSESSMENT AND PLAN: Osteomyelitis of right fibula without overlying significant wound, all those have early breakdown decubitus. This diagnosis was made by MRI. She does not have any exposed bone. I have discussed with the patient treatment options. I have discussed with her options for right below or [id number] amputation versus wound care and intravenous antibiotics. She has chosen the latter. Should she develop problems with the wound that progresses, she may need future amputation, but at this point, I would recommend local wound care and intravenous antibiotics by Dr. Ren. Surgical intervention is not warranted at this time. I will see her as needed. Please call if necessary. I will be glad to see her as an outpatient in my office in the future. Job ID: [id number]
--- NOTE | 2019-07-07 18:35 | PDOC.HOSPP ---
- Subjective Encounter Date: 07/07/19 Encounter Time: 18:38 Subjective: Pt seen for followup re: cellulitis. No complaints today. - Objective Vital Signs & Weight: Vital Signs (12 hours) Temp Pulse Resp BP Pulse Ox 07/07/19 16:00 98.9 F 98 20 101/72 93 L 07/07/19 12:29 98.1 F 91 20 132/79 91 L 07/07/19 08:09 98.0 F 82 20 119/80 92 L Weight Admit Weight 235 lb 4.8 oz Weight 235 lb 4.8 oz I&O: 07/06/19 07/07/19 07/08/19 06:59 06:59 06:59 Intake Total 780 840 720 Output Total 700 Balance 80 840 720 Result Diagrams: 07/07/19 05:25 07/03/19 05:46 Additional Labs: Accuchecks 07/07/19 07/07/19 07/07/19 16:55 11:57 06:13 POC Glucose 118 H 133 H 145 H 07/06/19 20:28 POC Glucose 126 H Labs and MARs reviewed by oh Hospitalist ROS - Review of Systems Cardiovascular: denies: chest pain, palpitations, orthopnea, paroxysmal noc. dyspnea, edema, light headedness Gastrointestinal: denies: nausea, vomiting, abdominal pain, diarrhea, constipation, melena, hematochezia - Medication Medications: Active Medications Generic Name Dose Route Start Last Admin Trade Name Freq PRN Reason Stop Dose Admin Acetaminophen 650 mg 07/02/19 17:54 07/04/19 06:33 Tylenol PO 650 mg Q4H PRN Administration Headache/Fever/Mild Pain (1-3) Allopurinol 100 mg 07/03/19 09:00 07/07/19 08:40 Zyloprim PO 100 mg DAILY [place] Administration Apixaban 5 mg 07/02/19 21:00 07/07/19 08:41 Eliquis PO 5 mg BID [place] Administration Atorvastatin Calcium 20 mg 07/02/19 21:00 07/06/19 21:16 Lipitor PO 20 mg HS [place] Administration Cholestyramine Resin 4 gm 07/03/19 10:00 07/07/19 08:40 Questran Light PO 4 gm 1000,2200 [place] Administration Dronedarone 400 mg 07/03/19 08:00 07/07/19 17:19 Multaq PO 400 mg BID-WM [place] Administration Gabapentin 300 mg 07/03/19 15:00 07/07/19 15:46 Neurontin PO 300 mg TID [place] Administration Vancomycin HCl 1 gm/ Device 200 mls @ 200 mls/hr 07/03/19 06:00 07/07/19 17: 19 IVPB 200 mls 0600,1800 [place] Administration Insulin Glargine 15 units/ 0.15 mls @ 0 mls/hr 07/03/19 21:00 07/06/19 21:24 Miscellaneous Medication SC Not Given HS [place]VER Labetalol HCl 5 mg 07/03/19 13:21 07/03/19 13:42 Normodyne SLOW IVP 5 mg Q4H PRN Administration SBP Greater Than 180 Levothyroxine Sodium 112 mcg 07/04/19 06:00 07/07/19 05:22 Synthroid PO 112 mcg 0600 [place] Administration Metoprolol Tartrate 50 mg 07/03/19 09:00 07/07/19 08:41 Lopressor PO 50 mg BID [place] Administration Sodium Chloride 10 ml 07/02/19 21:00 07/07/19 08:41 Flush - Normal Saline IVF 10 ml Q12HR [place] Administration Venlafaxine HCl 150 mg 07/03/19 21:00 07/06/19 21:15 Effexor Xr PO 150 mg HS [place] Administration - Exam General Appearance: NAD Eye: anicteric sclera ENT: moist mucosa Neck: supple Heart: RRR Respiratory: CTAB Gastrointestinal: soft, non-tender Neurological: hemiplegia (wound as documented) Psychiatric: normal affect, normal behavior Hosp A/P (1) Cellulitis Code(s): L03.90 - CELLULITIS, UNSPECIFIED Status: Acute (2) Osteomyelitis Code(s): M86.9 - OSTEOMYELITIS, UNSPECIFIED Status: Acute (3) Dyslipidemia Code(s): E78.5 - HYPERLIPIDEMIA, UNSPECIFIED Status: Chronic (4) HTN (hypertension) Code(s): I10 - ESSENTIAL (PRIMARY) HYPERTENSION Status: Chronic Qualifiers: Hypertension type: essential hypertension Qualified Code(s): I10 - Essential (primary) hypertension (5) 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 Continue IV vancomycin for MRSA cellulitis and early osteomyelitis. HTN controlled. Continue statin and apixaban. Wound care.
[2019-07-07] MEDS: Atorvastatin Calcium 20 MG TAB PO SCH (21:03)
[2019-07-07] MEDS: Venlafaxine HCl XR 150 MG CAP PO SCH (21:03)
[2019-07-07] MEDS: Insulin Glargine 15 UNITS in Pre-Filled Syringe 1 EACH SC SCH (21:07)
[2019-07-08] MEDS: Vancomycin HCl 1 GM in Premix Bag 1 BAG IVPB SCH ×2 (05:15→17:53)
[2019-07-08] MEDS: Levothyroxine Sodium 112 MCG TAB PO SCH (05:15)
[2019-07-08] MEDS: Apixaban 5 MG TAB PO SCH ×2 (08:59→21:11)
[2019-07-08] MEDS: Dronedarone HCl 400 MG TAB PO SCH ×2 (08:59→17:53)
[2019-07-08] MEDS: Metoprolol Tartrate 50 MG TAB PO SCH ×2 (09:00→21:11)
[2019-07-08] MEDS: Gabapentin 300 MG CAP PO SCH ×3 (09:00→21:11)
[2019-07-08] MEDS: Allopurinol 100 MG TAB PO SCH (09:00)
[2019-07-08] MEDS: Cholestyramine/Aspartame 4 gm Packet PO SCH ×2 (11:05→21:12)
--- NOTE | 2019-07-08 12:50 | PDOC.HOSPP ---
- Subjective Encounter Date: 07/08/19 Encounter Time: 12:48 Subjective: Pt seen for followup re: cellulitis. No complaints today. - Objective Vital Signs & Weight: Vital Signs (12 hours) Temp Pulse Resp BP Pulse Ox 07/08/19 08:10 93 L 07/08/19 07:24 98.2 F 93 20 108/66 86 L Weight Admit Weight 235 lb 4.8 oz Weight 235 lb 4.8 oz I&O: 07/07/19 07/08/19 07/09/19 06:59 06:59 06:59 Intake Total 840 720 Balance 840 720 Result Diagrams: 07/07/19 05:25 07/03/19 05:46 Additional Labs: Accuchecks 07/08/19 07/08/19 07/07/19 11:18 04:46 19:43 POC Glucose 120 H 113 H 158 H 07/07/19 16:55 POC Glucose 118 H Labs and MARs reviewed by sd Hospitalist ROS - Review of Systems Cardiovascular: denies: chest pain, palpitations, orthopnea, paroxysmal noc. dyspnea, edema, light headedness Gastrointestinal: denies: nausea, vomiting, abdominal pain, diarrhea, constipation, melena, hematochezia - Medication Medications: Active Medications Generic Name Dose Route Start Last Admin Trade Name Freq PRN Reason Stop Dose Admin Acetaminophen 650 mg 07/02/19 17:54 07/04/19 06:33 Tylenol PO 650 mg Q4H PRN Administration Headache/Fever/Mild Pain (1-3) Allopurinol 100 mg 07/03/19 09:00 07/08/19 09:00 Zyloprim PO 100 mg DAILY [place] Administration Apixaban 5 mg 07/02/19 21:00 07/08/19 08:59 Eliquis PO 5 mg BID [place] Administration Atorvastatin Calcium 20 mg 07/02/19 21:00 07/07/19 21:03 Lipitor PO 20 mg HS [place] Administration Cholestyramine Resin 4 gm 07/03/19 10:00 07/08/19 11:05 Questran Light PO 4 gm 1000,2200 [place] Administration Dronedarone 400 mg 07/03/19 08:00 07/08/19 08:59 Multaq PO 400 mg BID-WM [place] Administration Gabapentin 300 mg 07/03/19 15:00 07/08/19 09:00 Neurontin PO 300 mg TID [place] Administration Vancomycin HCl 1 gm/ Device 200 mls @ 200 mls/hr 07/03/19 06:00 07/08/19 05: 15 IVPB 200 mls 0600,1800 [place] Administration Insulin Glargine 15 units/ 0.15 mls @ 0 mls/hr 07/03/19 21:00 07/07/19 21:07 Miscellaneous Medication SC Not Given HS [place] Labetalol HCl 5 mg 07/03/19 13:21 07/03/19 13:42 Normodyne SLOW IVP 5 mg Q4H PRN Administration SBP Greater Than 180 Levothyroxine Sodium 112 mcg 07/04/19 06:00 07/08/19 05:15 Synthroid PO 112 mcg 0600 [place] Administration Metoprolol Tartrate 50 mg 07/03/19 09:00 07/08/19 09:00 Lopressor PO 50 mg BID [place] Administration Sodium Chloride 10 ml 07/02/19 21:00 07/08/19 08:59 Flush - Normal Saline IVF 10 ml Q12HR [place] Administration Venlafaxine HCl 150 mg 07/03/19 21:00 07/07/19 21:03 Effexor Xr PO 150 mg HS [place] Administration - Exam General - other findings: Morbid obesity Eye: anicteric sclera ENT: moist mucosa Neck: supple Heart: RRR Respiratory: CTAB, no ronchi Gastrointestinal: soft, non-tender Skin - other findings: wound as documented Neurological: hemiplegia Psychiatric: normal affect, normal behavior Hosp A/P (1) Cellulitis Code(s): L03.90 - CELLULITIS, UNSPECIFIED Status: Acute (2) Osteomyelitis Code(s): M86.9 - OSTEOMYELITIS, UNSPECIFIED Status: Acute (3) Dyslipidemia Code(s): E78.5 - HYPERLIPIDEMIA, UNSPECIFIED Status: Chronic (4) HTN (hypertension) Code(s): I10 - ESSENTIAL (PRIMARY) HYPERTENSION Status: Chronic Qualifiers: Hypertension type: essential hypertension Qualified Code(s): I10 - Essential (primary) hypertension (5) 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 - Plan continue antibiotics PICC line, then DC to NH on IV vancomycin for MRSA cellulitis and early osteomyelitis. HTN controlled. Continue statin. Continue apixaban. Wound care.
--- NOTE | 2019-07-08 13:35 | PQF ---
CASANDRA SAUL EVELIN LEO [id number] CLINICAL DOCUMENTATION IMPROVEMENT CLARIFICATION FORM: ICD-10 Updated PLEASE DO AN ADDENDUM TO THE PROGRESS NOTE WITH ANY DOCUMENTATION UPDATES OR ADDITIONS AND CARRY THROUGH TO DC SUMMARY. THANK YOU. DATE: 07/08/19 ATTN: Dr. Leo Please exercise your independent, professional judgment in responding to the clarification form. Clinical indicators are provided on the bottom of this form for your review Please check appropriate box(es): [ ] Sepsis due to: MRSA cellultiis [ ] Localized infection without sepsis [ ] Other diagnosis [ ] Unable to determine In addition, please specify: Present on Admission (POA): [ ] Yes [ ] No [ ] Unable to determine For continuity of documentation, please document condition throughout progress notes and discharge summary. Thank You. CLINICAL INDICATORS - SIGNS / SYMPTOMS / LABS / RESULTS AND LOCATION IN MR 07/02 wbc 14.1 per lab 07/02 Pulse 105 per VS 07/06 (Jono): "MRI: early osteomyelitis"; "MRSA+ve wound" RISK FACTORS / RESULTS AND LOCATION IN MR "MRSA cellultitis" 07/08 Jono note 07/07 Larisa: "low grade serous carcinoma" H&P([facility]): " right ankle cellulitis complication of DM" TREATMENTS / RESULTS AND LOCATION IN MR Daily CBC 07/02 orders Blood culture 07/02 per orders wound culture 07/03 per orders ID Consult 07/03 orders IV antibiotics - broad spectrum--> 07/02-07/05 Rocephin 2gm IV daily; Vancomycin 1.5gm IV Q12H 07/03-date per orders IV fluids--> 07/02 1 liter NS bolus in ED per orders (This form is maintained as a part of the permanent medical record) 2014 [employer] All Rights Reserved Fadumo Vera RN, BSN, CCDS [email or web address]
--- NOTE | 2019-07-08 16:07 | SPC ---
Exam: Left upper extremity ultrasound guided PICC line placement HISTORY: Infection. Exposure: 0.4 minutes. 2792 mGy*cm2 FINDINGS: Successful left upper extremity PICC line placement with ultrasound guidance. Single lumen 5 Chinese c atheter terminates in the right atrium. 46 cm trim length TECHNIQUE: Consent obtained to perform a left upper extremity PICC line with ultrasound guidance. Lef t arm was prepped and draped sterile fashion. 1% lidocaine, buffered with sodium bicarbonate was used for local anesthesia. Under ultrasound guidance, micropuncture needle was used to cannulate the brachial vein. A 0.018 guidewire was advanced through the needle to the level of the superior vena cava. Wire was advanced into the inferior vena cava to document venous access. Wire was subsequently pulled back to the right atrium. Tract was dilated. A single-lumen 5 Chinese catheter was advanced over the wire. Wire was removed. 46 cm catheter terminates in the right atrium. Catheter flushes and aspirates without difficulty. No immediate or postprocedure complications IMPRESSION: Successful left upper extremity PICC line placement with ultrasound guidance Transcribed Date/Time: 07/08/2019 4:10 PM
[2019-07-08 17:27] LABS: Vancomycin, Trough 17.9 ug/mL
[2019-07-08] MEDS: Venlafaxine HCl XR 150 MG CAP PO SCH (21:11)
[2019-07-08] MEDS: Atorvastatin Calcium 20 MG TAB PO SCH (21:11)
[2019-07-08] MEDS: Insulin Glargine 15 UNITS in Pre-Filled Syringe 1 EACH SC SCH (21:14)
[2019-07-09] MEDS: Levothyroxine Sodium 112 MCG TAB PO SCH (05:42)
[2019-07-09] MEDS: Vancomycin HCl 1 GM in Premix Bag 1 BAG IVPB SCH ×2 (05:42→17:29)
[2019-07-09] MEDS: Metoprolol Tartrate 50 MG TAB PO SCH ×2 (08:26→20:26)
[2019-07-09] MEDS: Gabapentin 300 MG CAP PO SCH ×3 (08:26→20:24)
[2019-07-09] MEDS: Allopurinol 100 MG TAB PO SCH (08:26)
[2019-07-09] MEDS: Apixaban 5 MG TAB PO SCH ×2 (08:26→20:24)
[2019-07-09] MEDS: Dronedarone HCl 400 MG TAB PO SCH ×2 (08:26→17:29)
[2019-07-09] MEDS: Cholestyramine/Aspartame 4 gm Packet PO SCH ×2 (10:38→21:48)
--- NOTE | 2019-07-09 18:07 | DIS ---
DATE OF ADMISSION: 07/02/2019 DATE OF DISCHARGE: 07/09/2019 PRIMARY CARE PROVIDER: Dr. Mihir Beckford. DISCHARGE DIAGNOSES: 1. Methicillin-resistant Staphylococcus aureus cellulitis of right foot. 2. Osteitis. 3. Early osteomyelitis. CONDITION OF PATIENT ON THE DAY OF DISCHARGE: Stable. I assessed Ms. Yates on the day of discharge. She denies any chest pain or shortness of breath. Vital signs are stable. S1 and S2 are heard, regular. Lungs are clear to auscultation bilaterally. DISCHARGE MEDICATIONS: She is being discharged home on vancomycin 1 g intravenously two times a day through [facility]. Otherwise, no change was made to her pre-admission home medications as dictated by Dr. Leiva in her history and physical note dated 07/02/2019. CONSULTATIONS DURING THIS HOSPITALIZATION: 1. Infectious Diseases, Dr. Ren. 2. General surgery, Dr. Ryan. 3. Oncology, Loly Peres. POST-DISCHARGE FOLLOWUP: With primary care provider in 3 days' time. HOSPITAL COURSE: Ms. Yates is a pleasant 68-year-old lady, who was admitted to [facility] for right foot wound infection. She was seen by the Infectious Disease Service. MRI of the right foot showed osteitis and early osteomyelitis. After discussion with General Surgery Service, the patient wanted to be treated with intravenous antibiotics instead of surgery. Arrangements are being made for intravenous vancomycin. Wound culture grew MRSA that was sensitive to clindamycin, doxycycline, gentamicin, linezolid, tetracycline, trimethoprim/sulfamethoxazole, vancomycin, and resistant amoxicillin, azithromycin, cefaclor, cefepime, ceftazidime, ciprofloxacin, clarithromycin, erythromycin, levofloxacin, ofloxacin, oxacillin, and rifampin. She should continue IV vancomycin 1 g q.12 hours, end date 08/14/2019, with weekly CBC, CRP, CMP, and x2 weekly vancomycin trough. Many thanks for allowing me to participate in your patient's care. Please feel free to contact me with any questions or concerns. ACTIVITY: As tolerated. DIET: Diabetic and heart healthy. DISCHARGE DESTINATION: Home with home health. TIME SPENT: Total amount of time spent coordinating this discharge: 32 minutes. Job ID: [id number]
[2019-07-09] MEDS: Atorvastatin Calcium 20 MG TAB PO SCH (20:24)
[2019-07-09 20:26] VITALS: BP 100/63; TEMP 98
[2019-07-09] MEDS: Insulin Glargine 15 UNITS in Pre-Filled Syringe 1 EACH SC SCH (20:26)
[2019-07-09] MEDS: Venlafaxine HCl XR 150 MG CAP PO SCH (20:26)
== END 2019-07-09 21:35 | disposition home health service (06) | DRG 871 ==
LOC: ERS 15:23 → T4-B 21:46
PROVIDERS: ADMIT Internal Medicine; ATTEND Internal Medicine
PROC: 02HV33Z Insertion of Infusion Device into Superior Vena Cava, Percutaneous Approach (ICD-10-PCS; principal; 2019-07-08)
PROC: B518ZZA Fluoroscopy of Superior Vena Cava, Guidance (ICD-10-PCS; 2019-07-08)
PROC: B34JZZZ Ultrasonography of Left Upper Extremity Arteries (ICD-10-PCS; 2019-07-08)
DX: A41.02 Sepsis due to Methicillin resistant Staphylococcus aureus (principal); L89.513 Pressure ulcer of right ankle, stage 3; I69.351 Hemiplegia and hemiparesis following cerebral infarction affecting right dominant side; M86.171 Other acute osteomyelitis, right ankle and foot; L03.115 Cellulitis of right lower limb; Z68.41 Body mass index [BMI] 40.0-44.9, adult; E11.69 Type 2 diabetes mellitus with other specified complication; K21.9 Gastro-esophageal reflux disease without esophagitis; F32.9 Major depressive disorder, single episode, unspecified; F41.9 Anxiety disorder, unspecified; I10 Essential (primary) hypertension; E78.5 Hyperlipidemia, unspecified; E03.9 Hypothyroidism, unspecified; I48.0 Paroxysmal atrial fibrillation; E11.51 Type 2 diabetes mellitus with diabetic peripheral angiopathy without gangrene; E66.01 Morbid (severe) obesity due to excess calories; K58.0 Irritable bowel syndrome with diarrhea; E78.00 Pure hypercholesterolemia, unspecified; M10.9 Gout, unspecified; E88.81 Metabolic syndrome and other insulin resistance; B95.62 Methicillin resistant Staphylococcus aureus infection as the cause of diseases classified elsewhere; Z90.710 Acquired absence of both cervix and uterus; Z74.01 Bed confinement status; I69.328 Other speech and language deficits following cerebral infarction; Z85.43 Personal history of malignant neoplasm of ovary; Z79.01 Long term (current) use of anticoagulants; Z79.4 Long term (current) use of insulin; Z79.890 Hormone replacement therapy; Z79.899 Other long term (current) drug therapy
CPT/HCPCS: 36415; 36416; 36569; 80048; 80053; 80202; 83605; 85025; 86304; 87040; 87070; 87077; 87149; 87186; 87205; 93005; 93010; 93923; 96365; 96366; 96367; C1751; J0696; J1815; J3370; J3490

== ENCOUNTER 2020-03-06 15:41 | Inpatient (IN) | payer MEDICARE ==
[~2020-03-06 15:41] MED LIST: Iopamidol-370 76% 500 ML 1 ML ONE
--- NOTE | 2020-03-06 16:24 | RAD ---
EXAM: Chest one view: HISTORY: Shortness of breath history of stroke 3 months ago COMPARISON: None FINDINGS: Minimal stable linear parenchymal changes bilaterally. Heart size: Within normal limits. Lungs: Clear of acute process. No evidence for confluent pneumonia, pleural effusion, acute edema, or pneumothorax, or other signifi cant acute process. IMPRESSION: No significant acute intrathoracic disease.
[2020-03-06 16:42] LABS: #Basophils 0.1 thou/uL (0.0-0.2); #Eosinphils 0.3 thou/uL (0.0-0.7); #Lymphocytes 2.1 thou/uL (1.20-3.40); #Neutrophils 12.4 thou/uL (1.40-6.50); %Basophils 0.4 % (0.0-1.0); %Eosinophils 1.7 % (0.0-10.0); %Lymphocytes 13.4 % (21.0-51.0); %Monocytes 6.6 % (0.0-10.0); Hemoglobin 13.1 g/dL (12.0-16.0); Mean Corpuscular HGB CONC 32.8 g/dL (32.0-36.0); Mean Corpuscular Hemoglobin 30.2 pg (27.0-31.0); Mean Corpuscular Volume 92.2 fL (78.0-98.0); Mean Platelet Volume 9.6 fL (7.4-10.4); Platelet Count 249 thou/uL (130-400); Red Blood Cell (RBC) Count 4.33 mill/uL (4.20-5.40); White Blood Cell (WBC) Count 15.9 thou/uL (4.8-10.8)
[2020-03-06 17:00] LABS: ALT (SGPT) 9 U/L (8-55); AST (SGOT) 13 U/L (5-34); Albumin 3.9 g/dL (3.4-4.8); Alkaline Phosphatase 98 U/L (40-110); Anion Gap 15 mmol/L (10-20); BUN (Urea Nitrogen) 15 mg/dL (9.8-20.1); Bilirubin, Total 0.9 mg/dL (0.2-1.2); Calc. Creatinine Clearance 0 mL/min (70-130); Calcium 9.7 mg/dL (7.8-10.44); Carbon Dioxide 26 mmol/L (23-31); Chloride 101 mmol/L (98-107); Estimated GFR-MDRD 80; Globulin 3.4 g/dL (2.4-3.5); Glucose 100 mg/dL (80-115); Lipase 11 U/L (8-78); Magnesium 1.5 mg/dL (1.6-2.6); Potassium 4.1 mmol/L (3.5-5.1); Protein, Total 7.3 g/dL (6.0-8.3); Sodium 138 mmol/L (136-145)
[2020-03-06 17:17] LABS: Bilirubin Negative (Negative); Blood, Urine Negative (Negative); Clarity Clear (Clear); Glucose, Urine (Dipstick) Normal (Negative); Ketone, Urine Negative (Negative); Leukocyte 75 Leu/uL (Negative); Nitrite Negative (Negative); Protein, Urine (Dipstick) Negative (Neg-Trace); RBC/HPF 0-3 HPF (0-3); Specific Gravity, Urine 1.017 (1.002-1.036); Squamous Epithelial 0-3 HPF (0-3); Urobilinogen Normal mg/dL (Less than 2); pH, Urine 6.5 (5.0-9.0)
[2020-03-06 17:18] LABS: Bacteria/HPF 1+ HPF (None Seen)
--- NOTE | 2020-03-06 17:55 | CT ---
CT HEAD WITHOUT IV CONTRAST COMPARISON: 02/13/2019 HISTORY: Altered mental status. Hypoxia. TECHNIQUE: Axial CT imaging at 5 mm intervals from vertex through skull base without contrast FINDINGS: There is decreased attenuation in the periventricular white matter which is nonspecific but likely re flective of chronic small vessel ischemic changes. There is an area of encephalomalacia seen in the region of the left basal ganglia, left thalamus extending into the left cerebral peduncle, and left f rontal lobe posteriorly due to remote infarction in the distribution of left MCA. Tiny remote lacunar infarction right basal ganglia is again present. There is mild cerebral volume loss. The ventricular system is normal in size, shape, and position for the degree of sulcal atrophy. There is no evidence of an acute infarction, hemorrhage, mass effect, or midline shift. Mucosal thickening is present in the left sphenoid sinus. Trace mucosal thickening is seen in a few e thmoidal air cells. Visualized mastoid air cells are clear. Osseous structures appear intact. IMPRESSION: 1. No acute intracranial abnormality demonstrated. 2. Chronic small vessel ischemic changes and cerebral volume loss. 3. Encephalomalacia related to remote infarction in the distribution of the left middle cerebral anna ry.
--- NOTE | 2020-03-06 18:01 | CT ---
CT ABDOMEN AND PELVIS WITH IV CONTRAST 03/06/2020 CLINICAL INFORMATION: Altered mental status and hypoxia. Abdominal pain. COMPARISON: 03/30/2013 Technique: Multiple contiguous axial CT images are obtained through the abdomen and pelvis with IV contrast. Cor onal reformatted images are provided. FINDINGS: Lower Chest: Small bilateral pleural effusions with associated passive atelectasis. Coronary artery c alcifications are visualized. Vessels: Vascular calcifications are seen in the abdominal aorta and involving the iliac arteries. Abdomen: Portal vein:Patent Gallbladder: Not well assessed due to motion and patient's arms down by the side. Liver: Few scattered punctate subcapsular calcifications are visualized. Liver is enlarged in cranioc audal dimensions measuring 21 cm, but this is probably secondary to a Angela's lobe configuration. Spleen: within normal limits. Pancreas: within normal limits. Adrenals: within normal limits. Kidneys: Normal appearance for phase of enhancement. Bowel: Small amount retained fecal material seen throughout the colon. Loops of small bowel are debby l in caliber. Appendix: Not definitively visualized, but there are no secondary signs to suggest appendicitis. Peritoneum: No ascites or free air; no fluid collection. Mesentery and Retroperitoneum: No enlarged mesenteric or retroperitoneal lymph nodes. Abdominal Wall: within normal limits. Pelvis: Reproductive Organs: Evidence of hysterectomy. Pelvis within normal limits. Bladder: Partially distended and normal in appearance. Bones: Degenerative changes in the spine. IMPRESSION: 1. Small bilateral pleural effusions and associated passive atelectasis. 2. Small amount retained fecal material in the colon. 3. Dense vascular calcifications. 4. Hysterectomy. 5. No acute findings are seen in the abdomen or pelvis.
[2020-03-06] MEDS ORDERED: cefTRIAXone\\ROCEPHIN 2 GM VIAL ONE (18:38)
[2020-03-06 23:33] VITALS: BMI 37.0
[2020-03-07] MEDS ORDERED: Dextrose 5% in Water 1,000 ML IV PRN (01:03)
[2020-03-07] MEDS ORDERED: Ondansetron ODT 4 MG TAB PO PRN (01:03)
[2020-03-07] MEDS ORDERED: HumaLOG 300 UNITS/3 ML VIAL SC PRN ×2 (01:03)
[2020-03-07] MEDS ORDERED: Ondansetron PF 4 MG/2 ML Vial IVP PRN (01:03)
[2020-03-07] MEDS ORDERED: Dextrose 50% Abboject 50 ML SYRINGE SLOW IVP PRN (01:03)
[2020-03-07] MEDS ORDERED: Acetaminophen 500 MG TAB PO PRN (01:03)
[2020-03-07] MEDS ORDERED: hydrALAZINE 20 MG/ML VIAL SLOW IVP PRN (01:03)
[2020-03-07] MEDS: Sodium Chloride 0.9% 1,000 ML IV SCH ×3 (02:21→21:13)
[2020-03-07] MEDS: Levothyroxine Sodium 112 MCG TAB PO SCH (05:00)
--- NOTE | 2020-03-07 05:51 | HP ---
PRIMARY CARE PROVIDER: Dr. Beckford. CHIEF COMPLAINT: Altered mental status. HISTORY OF PRESENT ILLNESS: This is a 69-year-old female who presents to [facility] Emergency Department after shelter staff noted the patient with altered mentation and confusion beyond baseline. The patient typically alert and oriented x4, becoming A and O x2 according to shelter reports. The patient resides at [facility] after sustaining a CVA with residual right hemiplegia and needing total care. The patient states she is nonambulatory and needs assistance with all activities of daily living. The patient denied any known change to her chronic medication regimen and states she has been compliant with her medication overall. In the emergency room, the patient underwent general evaluation including CT of the abdomen and pelvis showing no acute findings. CT of the brain without contrast showed no acute intracranial process. The patient received IV Rocephin after urinalysis concerning for infectious process. PAST MEDICAL HISTORY: 1. 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 2. Dysarthria secondary to #1. 3. Gouty arthropathy. 4. Diabetes mellitus type 2, insulin requiring. 5. Stenosis of the bilateral carotid arteries. 6. Hypothyroidism. 7. Hypertension. 8. Hyperlipidemia. 9. History of ovarian carcinoma. PAST SURGICAL HISTORY: Status post hysterectomy. CURRENT MEDICATIONS: 1. Allopurinol 100 mg p.o. daily. 2. Lipitor 20 mg p.o. at bedtime. 3. Flecainide 100 mg p.o. b.i.d. 4. Gabapentin 300 mg p.o. t.i.d. 5. Glargine insulin 15 units subcutaneously daily. 6. Letrozole 2.5 mg p.o. at bedtime. 7. Levothyroxine 112 mcg p.o. daily. 8. Magnesium oxide 400 mg p.o. daily. 9. Protonix 20 mg p.o. at bedtime. 10. Potassium chloride 20 mEq p.o. daily. 11. Florastor 250 mg p.o. daily. 12. Venlafaxine 150 mg p.o. at bedtime. 13. Eliquis 5 mg p.o. b.i.d. 14. Metoprolol tartrate 50 mg p.o. b.i.d. ALLERGIES: NO KNOWN DRUG ALLERGIES. FAMILY HISTORY: Mother with history of thyroid cancer. SOCIAL HISTORY: Resides at [facility]. No current alcohol, tobacco, or illicit drug use. Medical power of office services manager, Duglas Turner. REVIEW OF SYSTEMS: Unobtainable due to the patient's altered mental status and encephalopathy. PHYSICAL EXAMINATION: VITAL SIGNS: On admission, blood pressure 130/77, pulse 79, respiratory rate 18, temperature 99.1 degrees Fahrenheit, and O2 saturation 95% on room air. GENERAL APPEARANCE: This is a 69-year-old female. Alert and oriented to person, pleasant, in no acute distress. HEENT: Pupils are equal, round, reactive to light and accommodation. Extraocular muscles are intact. No scleral icterus. No conjunctival injection. Nares patent. OP is clear. Teeth in fair repair. NECK: Supple. No cervical adenopathy. No thyromegaly. No carotid bruits. No JVD appreciated. Cervical spine with full active and passive range of motion. No meningeal signs noted. CHEST: Lungs are clear to auscultation bilaterally. CARDIOVASCULAR EXAM: S1 and S2 without noted murmur, rub, or gallop. ABDOMEN: Rounded and soft with mild tenderness to palpation diffusely. No rebound or guarding appreciated. Bowel sounds are positive in all 4 quadrants. EXTREMITIES: Warm and dry with fair turgor. No clubbing, cyanosis, or asymmetric edema appreciated. Pulses palpable distally at the dorsalis pedis, posterior tibial, and popliteal arteries bilaterally. Capillary refill less than 2 seconds. NEUROLOGIC: Positive dysarthria and dysphasia. Right hemiplegia. PERTINENT LABORATORY DATA AND X-RAY FINDINGS: Magnesium 1.5. BNP 245. Troponin I negative x1. Lipase 11. CBC showed a white blood cell count of 15.9, hemoglobin 13, hematocrit 40, and platelet count 249 with 78% neutrophils. Urinalysis; positive for leukocyte esterase and 11 to 20 wbc's per high-power field, 1+ bacteria. Portable chest x-ray dated 03/06/2020, showed no acute cardiopulmonary process. CT of the brain without contrast dated 03/06/2020, showed no acute intracranial process. Chronic ischemic white matter changes with associated cerebral volume loss. CT of the abdomen and pelvis dated 03/06/2020, showed small bilateral pleural effusions with passive atelectasis. Small amount of retained fecal material in the colon. ASSESSMENT AND PLAN: 1. Acute metabolic encephalopathy. Suspect secondary to #2. We will continue management as outlined below and monitor mental status improvement. 2. Urinary tract infection. Suspected with urine culture pending. Continue IV fluids and Rocephin 2 g IV q.24 hours. 3. Diabetes mellitus type 2, insulin requiring. Continue glargine insulin 15 units subcutaneously daily. Insulin sliding scale for reflexive coverage. Serial Accu-Cheks before meals and at bedtime. 4. Hypothyroidism. Continue levothyroxine 112 mcg daily. 5. Prophylaxis. Sequential compression devices while in bed. Pepcid 20 mg p.o. b.i.d. PT and speech therapy evaluation in the a.m. 6. Code status, full. Surrogate medical decision maker is Duglas Turner. Job ID: [id number]
[2020-03-07 06:16] LABS: #Eosinphils 0.2 thou/uL (0.0-0.7); #Monocytes 0.9 thou/uL (0.11-0.59); %Basophils 0.3 % (0.0-1.0); %Eosinophils 1.6 % (0.0-10.0); %Lymphocytes 16.5 % (21.0-51.0); %Monocytes 7.4 % (0.0-10.0); %Neutrophils 74.2 % (42.0-75.0); Hemoglobin 11.9 g/dL (12.0-16.0); Mean Corpuscular HGB CONC 32.4 g/dL (32.0-36.0); Mean Corpuscular Hemoglobin 29.4 pg (27.0-31.0); Mean Corpuscular Volume 90.7 fL (78.0-98.0); Mean Platelet Volume 9.3 fL (7.4-10.4); Platelet Count 223 thou/uL (130-400); RBC Distribution Width 12.9 % (11.5-14.5); Red Blood Cell (RBC) Count 4.03 mill/uL (4.20-5.40); White Blood Cell (WBC) Count 12.1 thou/uL (4.8-10.8)
[2020-03-07 06:34] LABS: Anion Gap 12 mmol/L (10-20); BUN (Urea Nitrogen) 12 mg/dL (9.8-20.1); Calc. Creatinine Clearance 128 mL/min (70-130); Carbon Dioxide 28 mmol/L (23-31); Chloride 101 mmol/L (98-107); Estimated GFR-MDRD Greater than 90; Glucose 112 mg/dL (80-115); Potassium 3.5 mmol/L (3.5-5.1); Sodium 137 mmol/L (136-145)
[2020-03-07] MEDS ORDERED: Prevnar 13-Val Conj/PF 0.5 ML SYRINGE IM ONE (09:00)
[2020-03-07] MEDS ORDERED: INSULIN GLARGINE HUM REC ANLOG 15 UNIT SQ SCH (09:00)
[2020-03-07] MEDS: Insulin Glargine 15 UNITS in Pre-Filled Syringe 1 EACH SC SCH (10:45)
[2020-03-07] MEDS: Famotidine 20 MG TAB PO SCH ×2 (10:48→21:11)
[2020-03-07] MEDS: Potassium Chloride 20 MEQ TAB PO SCH (10:48)
[2020-03-07] MEDS: Gabapentin 300 MG CAP PO SCH ×3 (10:48→21:11)
[2020-03-07] MEDS: Allopurinol 100 MG TAB PO SCH (10:48)
[2020-03-07] MEDS: Saccharomyces boulardii 250 MG CAP PO SCH (10:48)
[2020-03-07] MEDS: Apixaban 5 MG TAB PO SCH ×2 (10:48→21:12)
[2020-03-07] MEDS: Metoprolol Tartrate 50 MG TAB PO SCH ×2 (10:48→21:11)
[2020-03-07] MEDS: Magnesium Oxide 400 MG TAB PO SCH (10:49)
[2020-03-07] MEDS: Flecainide 50 MG TAB PO SCH ×2 (10:49→21:11)
--- NOTE | 2020-03-07 13:50 | PDOC.HOSPP ---
- Subjective Encounter Date: 03/07/20 - Objective Vital Signs & Weight: Vital Signs (12 hours) Temp Pulse Resp BP Pulse Ox 03/07/20 11:00 98.4 F 80 14 117/61 97 03/07/20 07:10 98.2 F 84 16 128/77 100 03/07/20 04:00 98.9 F 77 20 111/73 92 L Weight Weight 216 lb Result Diagrams: 03/07/20 06:04 03/07/20 06:04 Additional Labs: Accuchecks 03/07/20 03/07/20 05:35 00:31 POC Glucose 121 H 107 Hospitalist ROS - Medication Medications: Active Medications Generic Name Dose Route Start Last Admin Trade Name Freq PRN Reason Stop Dose Admin Allopurinol 100 mg 03/07/20 09:00 03/07/20 10:48 Zyloprim PO 100 mg DAILY [place] Administration Apixaban 5 mg 03/07/20 09:00 03/07/20 10:48 Eliquis PO 5 mg BID [place] Administration Famotidine 20 mg 03/07/20 09:00 03/07/20 10:48 Pepcid PO 20 mg BID [place] Administration Flecainide Acetate 100 mg 03/07/20 09:00 03/07/20 10:49 Tambocor PO 100 mg BID [place] Administration Gabapentin 300 mg 03/07/20 09:00 03/07/20 10:48 Neurontin PO 300 mg TID [place] Administration Sodium Chloride 1,000 mls @ 75 mls/hr 03/07/20 01:30 03/07/20 02:21 Normal Saline 0.9% IV 1,000 mls .[id number] [place] Administration Insulin Glargine 15 units/ 0.15 mls @ 0 mls/hr 03/07/20 09:00 03/07/20 10:45 Miscellaneous Medication SC 0.15 mls QAM [place] Administration Levothyroxine Sodium 112 mcg 03/07/20 06:00 03/07/20 05:00 Synthroid PO Not Given 06 [place] Magnesium Oxide 400 mg 03/07/20 09:00 03/07/20 10:49 Magnesium Oxide PO 400 mg DAILY [place] Administration Metoprolol Tartrate 50 mg 03/07/20 09:00 03/07/20 10:48 Lopressor PO 50 mg BID [place] Administration Potassium Chloride 20 meq 03/07/20 08:00 03/07/20 10:48 K-Dur PO 20 meq QAM-WM [place] Administration Saccharomyces Boulardii 250 mg 03/07/20 09:00 03/07/20 10:48 Florastor PO 250 mg DAILY [place] Administration
[2020-03-07] MEDS: cefTRIAXone\\ROCEPHIN 2 GM in Sodium Chloride 0.9% 100 ML IVPB SCH (18:02)
[2020-03-07] MEDS: Venlafaxine HCl XR 150 MG CAP PO SCH (21:11)
[2020-03-07] MEDS: Atorvastatin Calcium 20 MG TAB PO SCH (21:11)
[2020-03-07] MEDS: Letrozole 2.5 MG TAB PO SCH (21:12)
[2020-03-08] MEDS: Levothyroxine Sodium 112 MCG TAB PO SCH (05:37)
[2020-03-08 06:44] LABS: #Basophils 0.1 thou/uL (0.0-0.2); #Eosinphils 0.5 thou/uL (0.0-0.7); #Lymphocytes 1.8 thou/uL (1.20-3.40); #Monocytes 0.8 thou/uL (0.11-0.59); #Neutrophils 7.7 thou/uL (1.40-6.50); %Basophils 0.7 % (0.0-1.0); %Eosinophils 4.8 % (0.0-10.0); %Lymphocytes 16.5 % (21.0-51.0); Hemoglobin 12.5 g/dL (12.0-16.0); Mean Corpuscular HGB CONC 32.3 g/dL (32.0-36.0); Mean Corpuscular Hemoglobin 29.8 pg (27.0-31.0); Mean Corpuscular Volume 92.3 fL (78.0-98.0); Mean Platelet Volume 9.7 fL (7.4-10.4); Platelet Count 215 thou/uL (130-400); Red Blood Cell (RBC) Count 4.18 mill/uL (4.20-5.40); White Blood Cell (WBC) Count 10.9 thou/uL (4.8-10.8)
[2020-03-08 07:07] LABS: ALT (SGPT) Less than 7 U/L (8-55); AST (SGOT) 11 U/L (5-34); Albumin 3.4 g/dL (3.4-4.8); Alkaline Phosphatase 80 U/L (40-110); Anion Gap 11 mmol/L (10-20); BUN (Urea Nitrogen) 13 mg/dL (9.8-20.1); Bilirubin, Total 0.5 mg/dL (0.2-1.2); Calc. Creatinine Clearance 124 mL/min (70-130); Calcium 8.8 mg/dL (7.8-10.44); Carbon Dioxide 27 mmol/L (23-31); Chloride 107 mmol/L (98-107); Estimated GFR-MDRD 89; Glucose 90 mg/dL (80-115); Magnesium 1.5 mg/dL (1.6-2.6); Potassium 3.4 mmol/L (3.5-5.1); Protein, Total 6.4 g/dL (6.0-8.3); Sodium 142 mmol/L (136-145)
[2020-03-08] MEDS: Metoprolol Tartrate 50 MG TAB PO SCH ×2 (09:45→21:59)
[2020-03-08] MEDS: Potassium Chloride 20 MEQ TAB PO SCH ×2 (09:45→16:17)
[2020-03-08] MEDS: Saccharomyces boulardii 250 MG CAP PO SCH (09:45)
[2020-03-08] MEDS: Flecainide 50 MG TAB PO SCH ×2 (09:45→21:59)
[2020-03-08] MEDS: Magnesium Oxide 400 MG TAB PO SCH (09:46)
[2020-03-08] MEDS: Famotidine 20 MG TAB PO SCH ×2 (09:46→21:58)
[2020-03-08] MEDS: Apixaban 5 MG TAB PO SCH ×2 (09:46→21:58)
[2020-03-08] MEDS: Allopurinol 100 MG TAB PO SCH (09:46)
[2020-03-08] MEDS: Gabapentin 300 MG CAP PO SCH ×3 (09:46→21:57)
[2020-03-08] MEDS: Insulin Glargine 15 UNITS in Pre-Filled Syringe 1 EACH SC SCH (09:51)
[2020-03-08] MEDS: Sodium Chloride 0.9% 1,000 ML IV SCH (09:53)
--- NOTE | 2020-03-08 09:54 | PDOC.HOSPP ---
- Subjective Encounter Date: 03/08/20 Encounter Time: 12:30 Subjective: Patient seen and examined for Encephalopathy/UTI. Mentation improving. No new fever or chills. No new complaints. No overnight events - Objective Vital Signs & Weight: Vital Signs (12 hours) Temp Pulse Resp BP BP Pulse Ox 03/08/20 07:31 98.1 F 70 18 122/75 98 03/08/20 04:45 97.7 F 68 17 123/77 96 Weight Weight 216 lb I&O: 03/07/20 03/08/20 03/09/20 06:59 06:59 06:59 Intake Total 1870 Output Total 1400 Balance 470 Result Diagrams: 03/08/20 05:56 03/08/20 05:56 Additional Labs: Accuchecks 03/07/20 03/07/20 03/07/20 11:41 05:35 00:31 POC Glucose 137 H 121 H 107 Microbiology 03/06/20 16:46 Urine clean catch Urine Culture - Preliminary Presumptive Proteus mirabilis Laboratory Tests 03/06/20 03/08/20 16:46 05:56 Magnesium 1.5 L Urine WBC 11-20 A Radiology Reviewed by me: Yes (CXR - negative) Hospitalist ROS - Review of Systems Respiratory: denies: cough, dry, shortness of breath, hemoptysis, SOB with excertion, pleuritic pain, sputum, wheezing, other Cardiovascular: denies: chest pain, palpitations, orthopnea, paroxysmal noc. dyspnea, edema, light headedness, other Gastrointestinal: denies: nausea, vomiting, abdominal pain, diarrhea, constipation, melena, hematochezia, other - Medication Medications: Active Medications Generic Name Dose Route Start Last Admin Trade Name Freq PRN Reason Stop Dose Admin Acetaminophen 1,000 mg 03/07/20 01:03 03/07/20 21:15 Tylenol PO 1,000 mg Q6H PRN Administration Mild Pain (1-3) Allopurinol 100 mg 03/07/20 09:00 03/08/20 09:46 Zyloprim PO 100 mg DAILY [place] Administration Apixaban 5 mg 03/07/20 09:00 03/08/20 09:46 Eliquis PO 5 mg BID [place] Administration Atorvastatin Calcium 20 mg 03/07/20 21:00 03/07/20 21:11 Lipitor PO 20 mg HS [place] Administration Famotidine 20 mg 03/07/20 09:00 03/08/20 09:46 Pepcid PO 20 mg BID [place] Administration Flecainide Acetate 100 mg 03/07/20 09:00 03/08/20 09:45 Tambocor PO 100 mg BID [place] Administration Gabapentin 300 mg 03/07/20 09:00 03/08/20 09:46 Neurontin PO 300 mg TID [place] Administration Ceftriaxone Sodium 2 gm/ 100 mls @ 200 mls/hr 03/07/20 18:00 03/07/20 18:02 Sodium Chloride IVPB 100 mls 1800 [place] Administration Sodium Chloride 1,000 mls @ 75 mls/hr 03/07/20 01:30 03/08/20 09:53 Normal Saline 0.9% IV 1,000 mls .[id number] [place] Administration Insulin Glargine 15 units/ 0.15 mls @ 0 mls/hr 03/07/20 09:00 03/08/20 09:51 Miscellaneous Medication SC 0.15 mls QAM [place] Administration Letrozole 2.5 mg 03/07/20 21:00 03/07/20 21:12 Femara PO 2.5 mg HS [place] Administration Levothyroxine Sodium 112 mcg 03/07/20 06:00 03/08/20 05:37 Synthroid PO 112 mcg 0600 [place] Administration Magnesium Oxide 400 mg 03/07/20 09:00 03/08/20 09:46 Magnesium Oxide PO 400 mg DAILY [place] Administration Metoprolol Tartrate 50 mg 03/07/20 09:00 03/08/20 09:45 Lopressor PO 50 mg BID [place] Administration Potassium Chloride 20 meq 03/07/20 08:00 03/08/20 09:45 K-Dur PO 20 meq QAM-WM [place] Administration Saccharomyces Boulardii 250 mg 03/07/20 09:00 03/08/20 09:45 Florastor PO 250 mg DAILY [place] Administration Venlafaxine HCl 150 mg 03/07/20 21:00 03/07/20 21:11 Effexor Xr PO 150 mg HS [place] Administration - Exam General Appearance: NAD Neck: supple, no JVD Respiratory: no wheezes, no ronchi Gastrointestinal: soft, non-tender, non-distended Extremities: no cyanosis, no clubbing Neurological: no new deficit Hosp A/P - Plan DVT proph w/lovenox Toxic Metabolic Encephalopathy due to Proteus UTI Hypokalemia Hypomagnesemia HTN DM2 Par Afib on Eliquis Obesity BMI 37.1 h/o CVA with right sided weakness Gout Hypothyroidism Other issues per H&P PLAN: Cont Ceftriaxone Cont IVF Replace Potassium Replace Magnesium Cont other meds as above Cont Flecainide/Anticoag and other meds as above Await cultures DC in AM if culture/sens available
[2020-03-08] MEDS ORDERED: Magnesium Sulfate 4 GM in Sodium Chloride 0.9% 250 ML 250 ML IVPB SCH (10:00)
[2020-03-08] MEDS ORDERED: Potassium Chloride 10 MEQ TAB PO SCH (12:00)
[2020-03-08] MEDS: cefTRIAXone\\ROCEPHIN 2 GM in Sodium Chloride 0.9% 100 ML IVPB SCH (17:37)
[2020-03-08] MEDS: Venlafaxine HCl XR 150 MG CAP PO SCH (21:58)
[2020-03-08] MEDS: Atorvastatin Calcium 20 MG TAB PO SCH (21:59)
[2020-03-08] MEDS: Letrozole 2.5 MG TAB PO SCH (22:00)
[2020-03-09] MEDS: Sodium Chloride 0.9% 1,000 ML IV SCH (04:58)
[2020-03-09] MEDS: Levothyroxine Sodium 112 MCG TAB PO SCH (05:01)
[2020-03-09 06:53] LABS: Albumin 3.2 g/dL (3.4-4.8); Anion Gap 11 mmol/L (10-20); BUN (Urea Nitrogen) 16 mg/dL (9.8-20.1); Calc. Creatinine Clearance 130 mL/min (70-130); Calcium 8.6 mg/dL (7.8-10.44); Carbon Dioxide 26 mmol/L (23-31); Chloride 106 mmol/L (98-107); Estimated GFR-MDRD Greater than 90; Glucose 91 mg/dL (80-115); Magnesium 1.8 mg/dL (1.6-2.6); Phosphorus 3.3 mg/dL (2.3-4.7); Potassium 3.6 mmol/L (3.5-5.1); Sodium 139 mmol/L (136-145)
[2020-03-09] MEDS: Gabapentin 300 MG CAP PO SCH (08:16)
[2020-03-09] MEDS: Saccharomyces boulardii 250 MG CAP PO SCH (08:16)
[2020-03-09] MEDS: Magnesium Oxide 400 MG TAB PO SCH (08:16)
[2020-03-09] MEDS: Famotidine 20 MG TAB PO SCH (08:16)
[2020-03-09] MEDS: Allopurinol 100 MG TAB PO SCH (08:16)
[2020-03-09] MEDS: Apixaban 5 MG TAB PO SCH (08:16)
[2020-03-09] MEDS: Potassium Chloride 20 MEQ TAB PO SCH (08:16)
[2020-03-09] MEDS: Metoprolol Tartrate 50 MG TAB PO SCH (08:16)
[2020-03-09] MEDS: Flecainide 50 MG TAB PO SCH (08:16)
[2020-03-09] MEDS: Insulin Glargine 15 UNITS in Pre-Filled Syringe 1 EACH SC SCH (08:17)
[2020-03-09] MEDS ORDERED: Magnesium 2 GM/50 ML 2 GM in Premix Bag 1 BAG IVPB SCH (09:45)
--- NOTE | 2020-03-09 10:53 | DIS ---
DATE OF ADMISSION: 03/06/2020 DATE OF DISCHARGE: 03/09/2020 DISCHARGE DISPOSITION: Assisted Living Facility. FOLLOWUP: Follow up with primary care physician, Dr. Beckford. ALLERGIES: NO KNOWN DRUG ALLERGIES. DISCHARGE MEDICATIONS: 1. Omnicef 300 mg b.i.d. for next 5 days. 2. Florastor 250 mg daily. All other home medications were left unchanged. The patient was seen and examined on the day of discharge. Denies any new complaints. Mentation has significantly improved. BRIEF HOSPITAL COURSE: The patient is a 69-year-old female with diabetes mellitus type 2, hypertension, and CVA in the past, presented to the hospital with altered mentation. Please refer to the history and physical dated March 06, 2020 for further details. The patient was admitted to the hospital with a diagnosis of toxic metabolic encephalopathy secondary to UTI. Her urinalysis showed 11 to 20 wbc's with 1+ bacteria. Urine culture showed Proteus mirabilis less than 5000 colonies. No other organism has been identified. The patient has been afebrile. Mentation has returned to baseline. She also had electrolyte abnormalities, which were replaced. Chest x-ray on admission was negative for infiltrate. A CT scan of the brain was negative for acute findings. It showed encephalomalacia in the left MCA territory due to remote infarction. A CT scan of the abdomen and pelvis was negative for obstructive uropathy. There was small amount of retained fecal material in the colon. She will benefit from a daily MiraLAX. She appears stable for discharge. FINAL DIAGNOSES: 1. Toxic metabolic encephalopathy secondary to Proteus urinary tract infection. 2. Hypokalemia. 3. Hypomagnesemia. 4. Paroxysmal atrial fibrillation, on anticoagulation. 5. Hypertension. 6. Diabetes mellitus type 2. 7. Obesity with a BMI of 37.1. 8. History of CVA with right-sided weakness. 9. Gout. 10. Hypothyroidism. 11. Constipation. 12. History of ovarian cancer. 13. Bilateral carotid artery stenosis. Primary care physician advised to follow. Please note that the postvoid residual was 64 mL. Job ID: [id number]
[2020-03-09 14:41] VITALS: BP 129/80; TEMP 98.3
== END 2020-03-09 14:37 | disposition home health service (06) | DRG 689 ==
LOC: ERS 15:41 → T4-A 20:15
PROVIDERS: ADMIT Internal Medicine; ATTEND Internal Medicine
DX: N39.0 Urinary tract infection, site not specified (principal); G92 Toxic encephalopathy; I69.351 Hemiplegia and hemiparesis following cerebral infarction affecting right dominant side; E87.6 Hypokalemia; E11.9 Type 2 diabetes mellitus without complications; B96.4 Proteus (mirabilis) (morganii) as the cause of diseases classified elsewhere; E83.42 Hypomagnesemia; I48.0 Paroxysmal atrial fibrillation; E66.9 Obesity, unspecified; M10.9 Gout, unspecified; R47.1 Dysarthria and anarthria; E03.9 Hypothyroidism, unspecified; K59.00 Constipation, unspecified; E78.00 Pure hypercholesterolemia, unspecified; F41.9 Anxiety disorder, unspecified; I65.23 Occlusion and stenosis of bilateral carotid arteries; I12.9 Hypertensive chronic kidney disease with stage 1 through stage 4 chronic kidney disease, or unspecified chronic kidney disease; Z79.01 Long term (current) use of anticoagulants; Z79.4 Long term (current) use of insulin; Z85.43 Personal history of malignant neoplasm of ovary
CPT/HCPCS: 36415; 36416; 70450; 71045; 74177; 80048; 80053; 80069; 81003; 81015; 83690; 83735; 83880; 84484; 85025; 87086; 93005; 96365; J0696; J1815; J3475; J3490; J7050; Q9967